=== PATIENT | male | born 1945 | race Caucasian/White ===

== ENCOUNTER 2020-07-26 08:45 | Observation (INO) | payer MEDICARE ==
[2020-07-26 09:12] LABS: Absolute Lymphocytes (CBC) 1.9 K/uL (0.7-4.9); Basophils % 0.8 % (0-1.3); Hematocrit 46.6 % (39.6-49.0); Lymphocytes % 23.2 % (15.3-44.8); MPV 7.4 fL (7.6-11.3); RBC Red Blood Cell Count 4.94 M/uL (4.33-5.43)
[2020-07-26 09:33] LABS: ALT/SGPT 30 U/L (12-78); AST/SGOT 27 U/L (15-37); Albumin 3.6 g/dL (3.4-5.0); Alkaline Phosphatase 53 U/L (45-117); BUN Blood Urea Nitrogen 6 mg/dL (7-18); Bicarbonate 27 mmol/L (21-32); Bilirubin Direct 0.3 mg/dL (0-0.2); Bilirubin Total 0.7 mg/dL (0.2-1.0); Glucose Level 93 mg/dL (74-106); Magnesium 1.8 mg/dL (1.8-2.4); NT PRO-BNP 953 pg/mL (<125); Potassium 3.9 mmol/L (3.5-5.1); Sodium Level 139 mmol/L (136-145); Troponin (Emerg Dept Use Only) < 0.02 ng/mL (0.0-0.045)
--- NOTE | 2020-07-26 09:57 | RAD REPORT ---
EXAM DESCRIPTION: RAD - Chest Single View - 07/26/2020 9:49 am CLINICAL HISTORY: CHEST PAIN COMPARISON: Two view chest March 2019 TECHNIQUE: AP portable chest image was obtained 07/26/2020 9:49 am . FINDINGS: No peripheral mass or consolidation. Interstitial opacification is similar to comparison. Heart size is prominent but similar to comparison. No acute vascular engorgement suspected. No signif icant failure or volume overload seen. Sternotomy wires are in place. No measurable pleural effusion and no pneumothorax. No acute bony abnormality seen. No acute aortic findings suspected. IMPRESSION: No acute cardiopulmonary process. Chest findings are not substantially different from comparison.
--- NOTE | 2020-07-26 10:08 | EDPHYS ---
Physician Documentation [facility] Name: Lobito Holder Age: 75 yrs Sex: Male : 1945 Arrival Date: 07/26/2020 Time: 08:48 Bed 3 Private MD: ED Physician Fredis Hernandez HPI: 07/26 09:55 This 75 yrs old Male presents to ER via Ambulatory with complaints of Chest trace Pain. 09:55 The patient or guardian reports chest pain that is located primarily in the substernal trace area. Onset: 1 day(s) ago. The pain does not radiate. Associated signs and symptoms: Pertinent positives: shortness of breath. The chest pain is described as a heaviness, a pressure. Duration: The patient or guardian reports multiple episodes, that have now resolved. Modifying factors: The symptoms are alleviated by nothing. NTG, X1. remaining still, rest, the symptoms are aggravated by exertion, walking. Severity of pain: At its worst the pain was mild moderate in the emergency department the pain has resolved and did so just prior to arrival, and did so earlier today. The patient has experienced a previous episode, last night. Historical: - Allergies: 09:03 No Known Allergies; ss - PMHx: 09:03 Hypertension; CAD; ss - PSHx: 09:03 CABG; ss - Immunization history:: Adult Immunizations up to date. - Social history:: Smoking status: Patient/guardian denies using tobacco, the patient reports quitting approximately 20 years ago, . - Family history:: not pertinent. ROS: 09:55 Constitutional: Negative for fever, chills, and weight loss, Eyes: Negative for injury, trace pain, redness, and discharge, ENT: Negative for injury, pain, and discharge, Neck: Negative for injury, pain, and swelling, Respiratory: Negative for shortness of breath, cough, wheezing, and pleuritic chest pain, Abdomen/GI: Negative for abdominal pain, nausea, vomiting, diarrhea, and constipation, Back: Negative for injury and pain, : Negative for injury, bleeding, discharge, and swelling, MS/Extremity: Negative for injury and deformity, Skin: Negative for injury, rash, and discoloration, Neuro: Negative for headache, weakness, numbness, tingling, and seizure, Psych: Negative for depression, anxiety, suicide ideation, homicidal ideation, and hallucinations, Allergy/Immunology: Negative for hives, rash, and allergies, Endocrine: Negative for neck swelling, polydipsia, polyuria, polyphagia, and marked weight changes. 09:55 Cardiovascular: Positive for chest pain. 09:55 Cardiovascular: Positive for :55 Respiratory: Positive for shortness of breath, on exertion. :55 Respiratory: Positive for :55 Abdomen/GI: Exam: :55 Constitutional: This is a well developed, well nourished patient who is awake, alert, trace and in no acute distress. Head/Face: Normocephalic, atraumatic. Eyes: Pupils equal round and reactive to light, extra-ocular motions intact. Lids and lashes normal. Conjunctiva and sclera are non-icteric and not injected. Cornea within normal limits. Periorbital areas with no swelling, redness, or edema. ENT: Nares patent. No nasal discharge, no septal abnormalities noted. Tympanic membranes are normal and external auditory canals are clear. Oropharynx with no redness, swelling, or masses, exudates, or evidence of obstruction, uvula midline. Mucous membranes moist. Neck: Trachea midline, no thyromegaly or masses palpated, and no cervical lymphadenopathy. Supple, full range of motion without nuchal rigidity, or vertebral point tenderness. No Meningismus. Chest/axilla: Normal chest wall appearance and motion. Nontender with no deformity. No lesions are appreciated. Cardiovascular: Regular rate and rhythm with a normal S1 and S2. No gallops, murmurs, or rubs. Normal PMI, no JVD. No pulse deficits. Respiratory: Lungs have equal breath sounds bilaterally, clear to auscultation and percussion. No rales, rhonchi or wheezes noted. No increased work of breathing, no retractions or nasal flaring. Abdomen/GI: Soft, non-tender, with normal bowel sounds. No distension or tympany. No guarding or rebound. No evidence of tenderness throughout. Back: No spinal tenderness. No costovertebral tenderness. Full range of motion. Male : Normal genitalia with no discharge or lesions. Skin: Warm, dry with normal turgor. Normal color with no rashes, no lesions, and no evidence of cellulitis. MS/ Extremity: Pulses equal, no cyanosis. Neurovascular intact. Full, normal range of motion. Neuro: Awake and alert, GCS 15, oriented to person, place, time, and situation. Cranial nerves II-XII grossly intact. Motor strength 5/5 in all extremities. Sensory grossly intact. Cerebellar exam normal. Normal gait. Psych: Awake, alert, with orientation to person, place and time. Behavior, mood, and affect are within normal limits. 09:55 Musculoskeletal/extremity: DVT Exam: No signs of deep vein thrombosis. no pain, no swelling, no tenderness, negative Homans' sign noted on exam, no appreciated bluish discoloration, no erythema, no increased warmth. 10:08 ECG was reviewed by the Attending Physician. trace Vital Signs: 08:59 BP 187 / 98; Pulse 86; Resp 18; Temp 97.7(TE); Pulse Ox 98% on R/A; Weight 102.06 kg; ss Height 5 ft. 10 in. (177.80 cm); Pain 0/10; 10:15 BP 169 / 85; Pulse 71 MON; Resp 17; Pulse Ox 97% on R/A; sv 11:39 BP 154 / 79; Pulse 52 MON; Resp 19; Pulse Ox 99% on R/A; vg1 12:30 BP 159 / 82; Pulse 51; Resp 17; Pulse Ox 96% ; sv 13:30 BP 167 / 82; Pulse 55; Resp 19; Pulse Ox 95% ; sv 08:59 Body Mass Index 32.28 (102.06 kg, 177.80 cm) ss 10:15 Normal Sinus Rhythm sv 11:39 Sinus bradycardia vg1 MDM: 08:58 Patient medically screened. trace 10:04 Differential diagnosis: abnormal EKG, coronary artery disease congestive heart failure trace hiatal hernia, pancreatitis, pneumonia, pulmonary embolus, stable angina, unstable angina. HEART Score: History: Moderately Suspicious (1), ECG: Non specific repolarization disturbance / LBTB / PM (1), Age: > or = 65 years (2), Risk Factors: 1 or 2 risk factors (1), Troponin: < or = 1 x Normal Limit (0). The patient was given aspirin in the Emergency Department. The patient's deep vein thrombosis risk score was calculated as follows: Total Score: 0. This patient was found to be at low risk for a deep vein thrombosis by using the Well's assessment criteria. The patient's pulmonary embolism risk score was calculated as follows: Total Score: 0-2 points. This patient was found to be at low risk for a pulmonary embolism by using the Well's assessment criteria. BULMARO Risk Score: 1 - patient's age is greater or equal to 65 years, 1 - Three or more CAD risk factors, 1- Known CAD, 1 - ASA use in past 7 days, 1 - Recent [<24hrs] Severe Angina, TOTAL SCORE = 5. Data reviewed: vital signs, nurses notes, lab test result(s), EKG, radiologic studies, plain films. 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 Test interpretation: by ED physician or midlevel provider: ECG, plain radiologic studies. Counseling: I had a detailed discussion with the patient and/or guardian regarding: the historical points, exam findings, and any diagnostic results supporting the discharge/admit diagnosis, the presence of at least one elevated blood pressure reading (>120/80) during this emergency department visit, lab results, the need for further work-up and treatment in the hospital. 07/26 08:55 Order name: Basic Metabolic Panel sv 07/26 08:55 Order name: CBC with Diff sv 07/26 08:55 Order name: LFT's sv 07/26 08:55 Order name: Magnesium sv 07/26 08:55 Order name: NT PRO-BNP sv 07/26 08:55 Order name: PT-INR sv 07/26 08:55 Order name: Troponin (emerg Dept Use Only) sv 07/26 09:16 Order name: CBC with Automated Diff; Complete Time: 09:20 EDMS 07/26 09:17 Order name: Protime (+INR); Complete Time: 09:20 EDMS 07/26 09:20 Order name: Lipase trace 07/26 09:33 Order name: Basic Metabolic Panel; Complete Time: 09:54 EDMS 07/26 09:33 Order name: Liver (Hepatic) Function; Complete Time: 09:54 EDMS 07/26 09:33 Order name: Troponin (Emerg Dept Use Only); Complete Time: 09:54 EDMS 07/26 09:33 Order name: NT PRO-BNP; Complete Time: 09:54 EDMS 07/26 08:55 Order name: XRAY Chest (1 view) sv 07/26 08:55 Order name: EKG; Complete Time: 08:56 sv 07/26 08:55 Order name: Cardiac monitoring; Complete Time: 09:05 sv 07/26 08:55 Order name: EKG - Nurse/Tech; Complete Time: 09:05 sv 07/26 08:55 Order name: IV Saline Lock; Complete Time: 09:05 sv 07/26 08:55 Order name: Labs collected and sent; Complete Time: 09:05 sv 07/26 08:55 Order name: O2 Per Protocol; Complete Time: 09:06 sv 07/26 08:55 Order name: O2 Sat Monitoring; Complete Time: 09:06 sv 07/26 09:33 Order name: Magnesium; Complete Time: 09:54 EDMS 07/26 09:48 Order name: Lipase; Complete Time: 09:54 EDMS 07/26 09:58 Order name: RAD; Complete Time: 10:09 EDMS EC:08 Rate is 87 beats/min. Rhythm is regular. QRS [place]ship is Normal. SC interval is normal. QRS trace interval is normal. QT interval is normal. No Q waves. T waves are Normal. Clinical impression: NSR w/ Non-specific ST/T Changes and No evidence of ischemia. Interpreted by me. Reviewed by me. Administered Medications: 10:34 Drug: Pepcid 20 mg Route: IVP; Site: right antecubital; sv 11:00 Follow up: Response: No adverse reaction sv 10:34 Drug: Lovenox 100 mg Route: Sub-Q; Site: right lower abdomen; sv 11:00 Follow up: Response: No adverse reaction sv 10:35 Drug: Lopressor 2.5 mg Route: IVP; Site: right antecubital; sv 11:39 Follow up: BP 154 / 79; Pulse 52 bpm Monitor: Sinus bradycardia; Resp 19 bpm; Pulse Ox vg1 99% RA; Response: No adverse reaction 10:35 Drug: Lopressor (metoprolol TARTRATE) 50 mg Route: PO; sv 11:00 Follow up: Response: No adverse reaction sv 13:45 Not Given (Physician Discretion): Lopressor 2.5 mg IVP once; Hold for SBP <100 or HR sv <60. Disposition: 07/26/20 10:07 Hospitalization ordered by Phi Rivera for Observation. Preliminary diagnosis are Chest pain, unspecified, Unstable angina, Essential (primary) hypertension. - Bed requested for Telemetry/MedSurg (observation). - Status is Observation. sv - Condition is Stable. - Problem is new. - Symptoms have improved. Signatures: Dispatcher [employer] Nishi Loza, RN RN Danna Mancini RN RN Fredis Guzmán MD MD cha Smirch, Shelby, RN RN ss Garcia, Victoria RN vg1 Corrections: (The following items were deleted from the chart) 13:16 10:07 Hospitalization Ordered by Phi Rivera for Observation. Preliminary diagnosis dw is Chest pain, unspecified; Unstable angina; Essential (primary) hypertension. Bed requested for Telemetry/MedSurg (observation). Status is Observation. Condition is Stable. Problem is new. Symptoms have improved. trace 13:55 13:16 07/26/2020 10:07 Hospitalization Ordered by Phi Rivera for Observation. sv Preliminary diagnosis is Chest pain, unspecified; Unstable angina; Essential (primary) hypertension. Bed requested for Telemetry/MedSurg (observation). Status is Observation. Condition is Stable. Problem is new. Symptoms have improved. dw
--- NOTE | 2020-07-26 10:08 | ER ---
Nurse's Notes [facility] Name: Lobito Holder Age: 75 yrs Sex: Male : 1945 Arrival Date: 07/26/2020 Time: 08:48 Bed 3 Private MD: Diagnosis: Chest pain, unspecified;Unstable angina;Essential (primary) hypertension Presentation: 07/26 08:59 Chief complaint: Patient states: Chest pain that began last night. Is relieved with ss Nitro. Pt reports he has been out of his amlodipine for 2 weeks. Coronavirus screen: Client denies travel out of the [place] in the last 14 days. Ebola Screen: Patient denies exposure to infectious person. Patient denies travel to an Ebola-affected area in the 21 days before illness onset. Initial Sepsis Screen: Does the patient meet any 2 criteria? No. Patient's initial sepsis screen is negative. Does the patient have a suspected source of infection? No. Patient's initial sepsis screen is negative. Risk Assessment: Do you want to hurt yourself or someone else? Patient reports no desire to harm self or others. Onset of symptoms was July 25, 2020. 08:59 Method Of Arrival: Ambulatory ss 08:59 Acuity: JAGJIT 2 ss Historical: - Allergies: 09:03 No Known Allergies; ss - PMHx: 09:03 Hypertension; CAD; ss - PSHx: 09:03 CABG; ss - Immunization history:: Adult Immunizations up to date. - Social history:: Smoking status: Patient/guardian denies using tobacco, the patient reports quitting approximately 20 years ago, . - Family history:: not pertinent. Screenin:00 Abuse screen: Denies threats or abuse. Denies injuries from another. Nutritional sv screening: No deficits noted. Tuberculosis screening: No symptoms or risk factors identified. Fall Risk None identified. Assessment: 09:00 General: Appears in no apparent distress. comfortable, unkempt, well developed, sv Behavior is calm, cooperative, appropriate for age. Pain: Complains of pain in chest Pain does not radiate. Pain currently is 3 out of 10 on a pain scale. Quality of pain is described as tightness Pain began 1 day ago. Is intermittent. Neuro: Level of Consciousness is awake, alert, obeys commands, Oriented to person, place, time, situation, Moves all extremities. Full function Gait is steady, Speech is normal. Cardiovascular: Patient's skin is warm and dry. Pulses are palpable in right radial artery and left radial artery Rhythm is sinus rhythm. Respiratory: Airway is patent Respiratory effort is even, unlabored, Respiratory pattern is regular, symmetrical. Respiratory: Reports shortness of breath. Derm: Skin is intact, Skin is pink, warm \T\ dry. 10:15 Reassessment: Patient appears in no apparent distress at this time. No changes from sv previously documented assessment. Patient and/or family updated on plan of care and expected duration. Pain level reassessed. Patient is alert, oriented x 3, equal unlabored respirations, skin warm/dry/pink. 11:39 Reassessment: Dr Rivera at the pt bedside. vg1 11:51 Reassessment: Waiting for admission orders. vg1 11:54 Reassessment: Patient appears in no apparent distress at this time. No changes from sv previously documented assessment. Patient and/or family updated on plan of care and expected duration. Pain level reassessed. Patient is alert, oriented x 3, equal unlabored respirations, skin warm/dry/pink. 12:27 Reassessment: Called Dr Rivera to place admission orders, stated he would put them in. sv Vital Signs: 08:59 BP 187 / 98; Pulse 86; Resp 18; Temp 97.7(TE); Pulse Ox 98% on R/A; Weight 102.06 kg; ss Height 5 ft. 10 in. (177.80 cm); Pain 0/10; 10:15 BP 169 / 85; Pulse 71 MON; Resp 17; Pulse Ox 97% on R/A; sv 11:39 BP 154 / 79; Pulse 52 MON; Resp 19; Pulse Ox 99% on R/A; vg1 12:30 BP 159 / 82; Pulse 51; Resp 17; Pulse Ox 96% ; sv 13:30 BP 167 / 82; Pulse 55; Resp 19; Pulse Ox 95% ; sv 08:59 Body Mass Index 32.28 (102.06 kg, 177.80 cm) ss 10:15 Normal Sinus Rhythm sv 11:39 Sinus bradycardia vg1 ED Course: 08:48 Patient arrived in ED. as 08:54 Nishi Smith RN is Primary Nurse. sv 08:58 Fredis Hernandez MD is Attending Physician. trace 09:00 Patient has correct armband on for positive identification. Placed in gown. Bed in low sv position. Call light in reach. Side rails up X2. Adult w/ patient. security monitor on. Pulse ox on. NIBP on. 09:00 Inserted saline lock: 20 gauge in right antecubital area, using aseptic technique. sv Blood collected. Flushed right antecubital with 2 ml normal saline. Patient maintains SpO2 saturation greater than 95% on room air. 09:02 Triage completed. ss 09:03 Arm band placed on right wrist. ss 09:05 EKG done, by ED staff, reviewed by Fredis Hernandez MD. sv 09:18 X-ray(s) taken. vg1 09:24 Lipase Sent. sv 09:35 XRAY Chest (1 view) Sent. sv 09:35 Troponin (emerg Dept Use Only) Sent. sv 09:35 PT-INR Sent. sv 09:35 NT PRO-BNP Sent. sv 09:35 Magnesium Sent. sv 09:35 LFT's Sent. sv 09:35 CBC with Diff Sent. sv 09:35 Basic Metabolic Panel Sent. sv 09:49 ED physician to see patient. sv 10:07 Phi Rivera is Hospitalizing Provider. trace 13:43 No provider procedures requiring assistance completed. Patient admitted, IV remains in sv place. intact. Administered Medications: 10:34 Drug: Pepcid 20 mg Route: IVP; Site: right antecubital; sv 11:00 Follow up: Response: No adverse reaction sv 10:34 Drug: Lovenox 100 mg Route: Sub-Q; Site: right lower abdomen; sv 11:00 Follow up: Response: No adverse reaction sv 10:35 Drug: Lopressor 2.5 mg Route: IVP; Site: right antecubital; sv 11:39 Follow up: BP 154 / 79; Pulse 52 bpm Monitor: Sinus bradycardia; Resp 19 bpm; Pulse Ox vg1 99% RA; Response: No adverse reaction 10:35 Drug: Lopressor (metoprolol TARTRATE) 50 mg Route: PO; sv 11:00 Follow up: Response: No adverse reaction sv 13:45 Not Given (Physician Discretion): Lopressor 2.5 mg IVP once; Hold for SBP <100 or HR sv <60. Outcome: 10:07 Decision to Hospitalize by Provider. trace 13:43 Admitted to Tele accompanied by tech, via wheelchair, room 404, with chart, Report sv called to Marv CHICAS 13:43 Condition: stable 13:43 Instructed on the need for admit. 13:55 Patient left the ED. sv Signatures: Nishi Smith RN Fredis Rees MD MD cha Martinez, Amelia as Smirch, Shelby, RN RN Mali Moses RN RN vg1 Corrections: (The following items were deleted from the chart) 11:39 11:30 BP 154 / 79; Pulse 52 bpm Monitor: Sinus bradycardia; Resp 19 bpm; Pulse Ox 99% vg1 RA vg1
[2020-07-26] MEDS ORDERED: METOPROLOL TAR 50 MG TAB ONE (10:27)
[2020-07-26] MEDS ORDERED: FAMOTIDINE 20 MG/2 ML VIAL IV ONE (10:28)
[2020-07-26] MEDS ORDERED: METOPROLOL TARTRATE 5 MG/5 ML INJ IV ONE (10:28)
[2020-07-26] MEDS ORDERED: ENOXAPARIN 100 MG/ML SYR SQ ONE (10:28)
--- NOTE | 2020-07-26 13:03 | P.HP ---
Certification for Inpatient Patient admitted to: Observation With expected LOS: <2 Midnights Practitioner: I am a practitioner with admitting privileges, knowledge of patient current condition, hospital course, and medical plan of care. Services: Services provided to patient in accordance with Admission requirements found in Title 42 Section 412.3 of the Code of Federal Regulations Patient History Date of Service: 07/26/20 Reason for admission: Chest pain History of Present Illness: 75-year-old gentleman with a history of coronary artery disease, CABG and cardiac stents presented to the emergency department with a complaint of chest pain of onset yesterday. Patient reports intermittent chest pain, worse with exertion likely climbing stairs, relieved with nitroglycerine. The patient denies any shortness of breath or sweating or nausea. His chest x-ray in the ED is unremarkable. EKG showed nonspecific ST T wave change. Initial troponin is negative. Given patient's significant cardiac risk factors, he is placed under observation for ACS rule out. Allergies No Known Allergies Allergy (Verified 08/29/16 09:54) - Past Medical/Surgical History -: Coronary artery disease -: Hypertension -: Diabetes mellitus type 2 -: Hyperlipidemia -: CABG -: Cardiac stent - Family History Brother -: Diabetes - Social History Smoking Status: Former smoker Alcohol use: No CD- Drugs: No Review of Systems Other: Except as documented, all other systems reviewed and negative. Physical Examination - Physical Exam General: Alert, In no apparent distress HEENT: PERRLA, Mucous membr. moist/pink, Sclerae nonicteric Neck: Supple, JVD not distended Respiratory: Clear to auscultation bilaterally, Normal air movement Cardiovascular: No edema, Regular rate/rhythm, Normal S1 S2 Capillary refill: <2 Seconds Gastrointestinal: Normal bowel sounds, Soft and benign, Non-distended, No tenderness Musculoskeletal: No swelling, No erythema Integumentary: No rashes, No erythema Neurological: Normal speech, Normal strength at 5/5 x4 extr - Studies Laboratory Data (last 24 hrs) 07/26/20 09:00: Lipase 127 07/26/20 09:00: PT 11.8, INR 1.00 07/26/20 09:00: WBC 8.1, Hgb 16.0, Hct 46.6, Plt Count 330 07/26/20 09:00: Sodium 139, Potassium 3.9, BUN 6 L, Creatinine 0.83, Glucose 93, Magnesium 1.8, Total Bilirubin 0.7, AST 27, ALT 30, Alkaline Phosphatase 53 Assessment and Plan - Problems (Diagnosis) (1) Chest pain Current Visit: Yes Status: Acute (2) Coronary artery disease Current Visit: Yes Status: Acute (3) Diabetes mellitus type 2 in nonobese Current Visit: Yes Status: Acute - Plan Place under observation. Continue to trend troponin Treat him with aspirin, Lipitor, metoprolol. Resume home dose amlodipine to control blood pressure. Obtain echocardiogram Check lipid profile Cardiology consult. - Advance Directives Does patient have a Living Will: No Does patient have a Durable POA for Healthcare: No
[2020-07-26] MEDS ORDERED: NITROGLYCERIN 0.4 MG/TAB SL PRN (14:10)
[2020-07-26 14:14] VITALS: BMI 32.3
[2020-07-26] MEDS ORDERED: MORPHINE 2 MG/ML SYR IV PRN (14:28)
[2020-07-26 14:29] VITALS: O2SAT 95
[2020-07-26] MEDS ORDERED: D50W 25 GM/50 ML SYRINGE/VIAL IV PRN (15:00)
[2020-07-26] MEDS ORDERED: ENOXAPARIN 40 MG/0.4 ML SQ SCH (15:00)
[2020-07-26] MEDS ORDERED: GLUCAGON 1 MG/VIAL IM PRN (15:00)
[2020-07-26 15:07] LABS: HDL Cholesterol 77 mg/dL (40-60); LDL Cholesterol, Calculated 31 (<130); Troponin I < 0.02 ng/mL (0.0-0.045)
[2020-07-26] MEDS: INSULIN -REGULAR HUMAN 50 UNIT/0.5 ML ML SQ SCH ×2 (16:29→20:10)
[2020-07-26] MEDS ORDERED: MELATONIN 5 MG TABLET PO PRN (23:56)
[2020-07-27 06:03] LABS: Absolute Lymphocytes (CBC) 1.9 K/uL (0.7-4.9); BUN Blood Urea Nitrogen 8 mg/dL (7-18); Basophils % 1.7 % (0-1.3); Bicarbonate 27 mmol/L (21-32); Glucose Level 93 mg/dL (74-106); Hematocrit 43.2 % (39.6-49.0); Lymphocytes % 24.2 % (15.3-44.8); MPV 8.1 fL (7.6-11.3); Potassium 3.7 mmol/L (3.5-5.1); RBC Red Blood Cell Count 4.55 M/uL (4.33-5.43); Sodium Level 142 mmol/L (136-145)
[2020-07-27] MEDS: INSULIN -REGULAR HUMAN 50 UNIT/0.5 ML ML SQ SCH ×2 (07:30→11:30)
[2020-07-27] MEDS ORDERED: METFORMIN ER 500 MG TAB PO SCH (08:00)
[2020-07-27] MEDS ORDERED: ENOXAPARIN 40 MG/0.4 ML SQ SCH (09:00)
[2020-07-27] MEDS ORDERED: ASPIRIN EC 81 MG TAB PO SCH (09:00)
[2020-07-27] MEDS ORDERED: ROSUVASTATIN 10 MG TAB PO SCH (09:00)
--- NOTE | 2020-07-27 10:47 | EKG ---
Test Date: 2020-07-26 Test Time: 09:05:17 [employer]: YONI MEASUREMENT RESULTS: Intervals: Rate: 87 NC: 124 QRSD: 94 QT: 374 QTc: 450 [place]: P: 28 NC: 124 QRS: 17 T: -3 INTERPRETIVE STATEMENTS: Sinus rhythm with sinus arrhythmia with occasional premature ventricular complexes Nonspecific ST abnormality Abnormal ECG Compared to ECG 07/04/2004 05:57:00 Ventricular premature complex(es) now present ST (T wave) deviation now present Myocardial infarct finding no longer present Electronically Signed On 07-27-20 10:45:09 CDT by William Lomas
--- NOTE | 2020-07-27 11:14 | P.DS ---
Admission Date: 07/26/20 Discharge Date: 07/27/20 Disposition: ROUTINE DISCHARGE Discharge Condition: GOOD Reason for Admission: Chest pain Consultations: Cardiology - Dr. Lomas Procedures: CXR 07/26: IMPRESSION: No acute cardiopulmonary process. Chest findings are not substantially different from comparison. TTE 07/27: VERY TECHNICALLY DIFFICULT STUDY. NORMAL LEFT VENTRICULAR EJECTION AND LEFT VENTRICULAR SIZE. NO WALL MOTION ABNORMALITY. NO EFFUSION. Problem List Chest pain CAD S/p CABG DM2 HTN HLD Brief History of Present Illness: 75-year-old gentleman with a history of coronary artery disease, CABG and cardiac stents presented to the emergency department with a complaint of chest pain of onset yesterday. Patient reports intermittent chest pain, worse with exertion likely climbing stairs, relieved with nitroglycerine. The patient denies any shortness of breath or sweating or nausea. His chest x-ray in the ED is unremarkable. EKG showed nonspecific ST T wave change. Initial troponin is negative. Given patient's significant cardiac risk factors, he is placed under observation for ACS rule out. Hospital Course: Patient reported resolution of chest pain prior to admission, troponins remained negative, echocardiogram was reported as unremarkable. Cardiology was consulted and felt patient was stable to be discharged home with follow-up with cardiology in ~1 month. During the hospitalization it was noted that patient had run out of his BP medications a few weeks prior to admission and was hypertensive on admission. He was treated with norvasc 5mg as opposed to the reported 10mg home dose. On day of discharge his BP was 109-120s/70s, so he was given a prescription for 5mg norvasc instead of 10mg. He is to f/u with his PCP within 1 week. Vital Signs/Physical Exam: Temp Pulse Resp BP Pulse Ox 98.6 F 61 16 109/72 94 07/27/20 08:00 07/27/20 08:09 07/27/20 08:00 07/27/20 08:09 07/27/20 08:00 General: Alert, In no apparent distress Neck: No LAD Respiratory: Clear to auscultation bilaterally Cardiovascular: No edema, Regular rate/rhythm, Normal S1 S2 Gastrointestinal: Soft and benign, Non-distended, No tenderness Musculoskeletal: No erythema, No tenderness Integumentary: No rashes Neurological: Normal speech, Normal affect Laboratory Data at Discharge: WBC 7.7 K/uL (4.3-10.9) 07/27/20 03:22 Hgb 14.6 g/dL (13.6-17.9) 07/27/20 03:22 Hct 43.2 % (39.6-49.0) 07/27/20 03:22 Plt Count 304 K/uL (152-406) 07/27/20 03:22 PT 11.8 SECONDS (9.5-12.5) 07/26/20 09:00 INR 1.00 07/26/20 09:00 Sodium 142 mmol/L (136-145) 07/27/20 03:22 Potassium 3.7 mmol/L (3.5-5.1) 07/27/20 03:22 BUN 8 mg/dL (7-18) 07/27/20 03:22 Creatinine 0.78 mg/dL (0.55-1.3) 07/27/20 03:22 Glucose 93 mg/dL (74-106) 07/27/20 03:22 Magnesium 1.8 mg/dL (1.8-2.4) 07/26/20 09:00 Total Bilirubin 0.7 mg/dL (0.2-1.0) 07/26/20 09:00 AST 27 U/L (15-37) 07/26/20 09:00 ALT 30 U/L (12-78) 07/26/20 09:00 Alkaline Phosphatase 53 U/L (45-117) 07/26/20 09:00 Troponin I 0.09 ng/mL (0.0-0.045) H 07/27/20 07:10 Triglycerides 90 mg/dL (<150) 07/26/20 14:33 Cholesterol 126 mg/dL (<200) 07/26/20 14:33 HDL Cholesterol 77 mg/dL (40-60) H 07/26/20 14:33 Cholesterol/HDL Ratio 1.64 07/26/20 14:33 Lipase 127 U/L (73-393) 07/26/20 09:00 Home Medications: Metformin ER [Glucophage ER*] 1 tab PO DAILY 07/26/20 Rosuvastatin [Crestor*] 2 tab PO BEDTIME 07/26/20 Amlodipine [Norvasc*] 1 tab PO DAILY 30 Days #30 tab 07/27/20 Lisinopril/Hydrochlorothiazide [Lisinopril-Hctz 20-12.5 mg Tab] 1 tab PO DAILY 30 Days #30 07/27/20 Nitroglycerin [Nitrostat*] 1 tab SL UD PRN #20 tab 07/27/20 New Medications: Lisinopril/Hydrochlorothiazide [Lisinopril-Hctz 20-12.5 mg Tab] 1 tab PO DAILY 30 Days #30 Nitroglycerin [Nitrostat*] 1 tab SL UD PRN #20 tab PRN Reason: Pain Scale 2-4 (Mild) Amlodipine [Norvasc*] 1 tab PO DAILY 30 Days #30 tab Patient Discharge Instructions: follow up with PCP within 1 week. follow up with Cardiology - Dr. Lomas in ~1 month Diet: AHA Activity: Ad vicente Followup: William Lomas MD [ACTIVE - CAN ADMIT] - (Call for appointment in one month. ) Omer Decker MD [Primary Care Provider] - 1 Week (Call for appointment. ) Time spent managing pt's care (in minutes): 35
[2020-07-27 12:03] VITALS: BP 120/70; TEMP 98
--- NOTE | 2020-07-27 12:06 | ECHO ---
HEIGHT: 5 ft 10 in WEIGHT: 225 lb 0 oz DATE OF STUDY: 07/27/[address]: beatrice gordon 2-DIMENSIONAL: YES M.MODE: YES DOPPLER: YES COLOR FLOW: YES TDS: YES PORTABLE: NO DEFINITY: NO BUBBLE STUDY: NO DIAGNOSIS: CORONARY ARTERY DISEASE WITH ANGINA CARDIAC HISTORY: CATHERIZATION: YES SURGERY: YES PROSTHETIC VALVE: NO PACEMAKER: NO MEASUREMENTS (cm) DIASTOLIC (NORMALS) SYSTOLIC (NORMALS) IVSd 1.0 (0.6-1.2) LA Diam 4.2 (1.9-4.0) LVEF 63% LVIDd 4.4 (3.5-5.7) LVIDs 2.9 (2.0-3.5) %FS 34% LVPWd 1.0 (0.6-1.2) Ao Diam 2.4 (2.0-3.7) 2 DIMENSIONAL ASSESSMENT: RIGHT ATRIUM: NORMAL LEFT ATRIUM: DILATED RIGHT VENTRICLE: NORMAL LEFT VENTRICLE: NORMAL TRICUSPID VALVE: NORMAL MITRAL VALVE: NORMAL PULMONIC VALVE: NORMAL AORTIC VALVE: NORMAL PERICARDIAL EFFUSION: NONE AORTIC ROOT: NORMAL LEFT VENTRICULAR WALL MOTION: NORMAL DOPPLER/COLOR FLOW: NORMAL COMMENTS: VERY TECHNICALLY DIFFICULT STUDY. NORMAL LEFT VENTRICULAR EJECTION AND LEFT VENTRICULAR SIZE. NO WALL MOTION ABNORMALITY. NO EFFUSION. TECHNOLOGIST: Dulce HENRY
[2020-07-27] MEDS ORDERED: AMLODIPINE 5 MG TAB PO SCH (15:00)
--- NOTE | 2020-07-28 05:36 | CON ---
Date of Consultation: 07/27/2020 Reason For Consultation: Chest pain. History Of Present Illness: The patient is a 75-year-old male, has had a history of hypertension, di abetes, dyslipidemia, coronary artery disease, status post coronary artery bypass surgery. Has been very noncompliant with medication. Has been drinking more alcohol than usual. Has run out of Apozy. Came in with a blood pressure 180/93. So far, he has had a negative chest x-ray, negative tropo tab. He had symptoms with exertion when he was going up the stairs while he was watching a football game. His pain lasted about 15-20 minutes without any nausea, vomiting, diaphoresis, PND, orthopnea, pedal edema, palpitations, or syncope. Past Medical History: As stated above. Allergies: NONE. Medications: Medications at home are supposed to be lisinopril with hydrochlorothiazide, Norvasc, Cr estor, and metformin. Review of Systems: Negative. Social History: Positive for alcohol and tobacco use. Family History: Positive for heart disease. Physical Examination: Vital Signs: His blood pressure was 180/93. He was in sinus rhythm, afebrile. HEENT: Negative. Neck: Supple with no bruit, lymphadenopathy, JVD, or thyromegaly. Chest: Clear to auscultation and percussion. Cardiac Exam: Revealed a regular rhythm and rate. No murmurs or rubs. He had S4 gallops. Abdomen: Benign. Extremities: Revealed no clubbing, cyanosis, or edema. Skin: Dry and intact. Pulses were present distally bilaterally. Neurologic: He was nonfocal. Diagnostic Data: Fairly unremarkable. Impression And Plan: Stable angina in a patient with coronary artery disease, not in acute coronary syndrome. The patient needs to be seen soon in the office. I think he needs an outpatient stress te st. We need to improve his compliance. He was counseled against smoking and drinking. Prescription s for lisinopril hydrochlorothiazide, Norvasc, Crestor, and metformin were written for him. It may b e reasonable to add a low-dose beta-belia as well. If his symptoms persist, he will need a cathete rization as an outpatient, but we will follow him in the next week or two. His other issues includin g diabetes and dyslipidemia seem to be well controlled at this point. NB/MODL Voice ID: [id number] Report ID: [id number]
== END 2020-07-27 12:10 | disposition home or self-care (01) ==
LOC: ER 08:45 → ERHOLD 12:52 → 4TH 13:46
PROVIDERS: ADMIT Internal Medicine; ATTEND Hospitalist
DX: R07.9 Chest pain, unspecified (principal); I25.10 Atherosclerotic heart disease of native coronary artery without angina pectoris; Z95.1 Presence of aortocoronary bypass graft; E11.9 Type 2 diabetes mellitus without complications; I10 Essential (primary) hypertension; E78.5 Hyperlipidemia, unspecified; Z95.5 Presence of coronary angioplasty implant and graft; Z91.14 Patient's other noncompliance with medication regimen; Z79.84 Long term (current) use of oral hypoglycemic drugs; R94.31 Abnormal electrocardiogram [ECG] [EKG]; Z20.828 Contact with and (suspected) exposure to other viral communicable diseases; Z87.891 Personal history of nicotine dependence
CPT/HCPCS: 93005; 93306; 85025 ×2; 80048 ×2; 36415 ×2; 83735; 85610; 80061; 82947 ×3; 80076; 84484 ×5; 83690; 83880; 71045; 96375; 96372; 96374; 99285; U0002; J1650 ×2; G0378 ×3

== ENCOUNTER 2021-10-31 12:28 | Inpatient (IN) | payer OTHER ==
--- OUTSIDE RECORDS SUMMARY | 2021-10-31 12:31 | XMS REPORT | Continuity of Care Document ---
:1945 Author Organization [facility] t Address [address] [place] [address] Care Team Providers Name Role Phone JOVON Attending Clinician Unavailable JOSHUA Attending Clinician Unavailable Flip LUNSFORD Attending Clinician Unavailable Kirby VELÁZQUEZ Attending Clinician Unavailable LAB90 Attending Clinician Unavailable Payers Payer Name Policy Type Policy Number Effective Date Expiration Date Vandana lakhani [employer] - HMO 7 [id number] 2021 00:00:00 2020 R2T Problems This patient has no known problems. Allergies, Adverse Reactions, Alerts This patient has no known allergies or adverse reactions. Medications This patient has no known medications. Procedures This patient has no known procedures. Encounters Start End Encounter Admission Attending Care Care Encounter Source Date/Time Date/Time Type Type Clinicians Facility Department ID 2021-08-02 2021-08-02 Outpatient ANGELICA SIGALA [id number] [facility] 00:00:00 00:00:00 MICHAEL jensen 2021-05-20 2021-05-20 Outpatient ANGELICA LEWIS [id number] [place] 09:30:00 09:30:00 SHALA ryan 2021-05-20 2021-05-20 Outpatient ELIAS LUNSFORD [id number] [place] 00:00:00 00:00:00 Serubén bose 2021-05-20 2021-05-20 Outpatient ANGELICA SIGALA [id number] [place] 00:00:00 00:00:00 MICHAEL jensen 2021-03-15 2021-03-15 Outpatient ANGELICA VELÁZQUEZ [id number] [place] 13:00:00 13:00:00 LAMAR ryan 2021-03-08 2021-03-08 Outpatient LAB90 ANGELICA DOMINGUEZ [id number] [place] 09:40:00 09:40:00 Seybol d 2021-03-01 2021-03-01 Outpatient ANGELICA VELÁZQUEZ [id number] [place] 13:00:00 13:00:00 LAMAR ryan 2021-02-28 2021-02-28 Outpatient LAB90 ANGELICA DOMINGUEZ [id number] [place] 10:55:00 10:55:00 Seybol d Results This patient has no known results.
[2021-10-31 13:48] LABS: Absolute Lymphocytes (CBC) 1.5 K/uL (0.7-4.9); Hematocrit 49.1 % (39.6-49.0); MPV 7.7 fL (7.6-11.3); RBC Red Blood Cell Count 5.46 M/uL (4.33-5.43)
[2021-10-31 13:54] LABS: Protime INR 1.03
[2021-10-31] MEDS ORDERED: NA CHLORIDE 0.9% 1,000 ML ONE ×3 (14:11→17:34)
[2021-10-31 14:23] LABS: Albumin 3.6 g/dL (3.4-5.0); Bilirubin Direct 0.3 mg/dL (0-0.2); Magnesium 2.5 mg/dL (1.8-2.4); Potassium 3.8 mmol/L (3.5-5.1); Protein, Total 8.9 g/dL (6.4-8.2); Troponin (Emerg Dept Use Only) 1.03 ng/mL (0.0-0.045)
[2021-10-31 14:39] LABS: SARS-COV-2 RT PCR NEGATIVE (NEGATIVE)
--- NOTE | 2021-10-31 14:50 | RAD REPORT ---
EXAM DESCRIPTION: RAD - Chest Single View - 10/31/2021 2:45 pm CLINICAL HISTORY: generalized weakness Chest pain. COMPARISON: Chest Single View dated 07/26/2020; Chest Pa And Lat (2 Views) dated 04/11/2019; CHEST PA AND LAT 2 VIEW dated 03/19/2015 FINDINGS: Portable technique limits examination quality. Mild pulmonary edema is present. The heart is moderately enlarged. Sternotomy wires present.Small hia mey hernia. IMPRESSION: Mild CHF.
--- NOTE | 2021-10-31 14:56 | RAD REPORT ---
EXAM DESCRIPTION: CT - CTHCSPWOC - 10/31/2021 2:43 pm CLINICAL HISTORY: Trauma, head and neck injury. Fall injury COMPARISON: No comparisons TECHNIQUE: Axial 5 mm thick images of the head were obtained. Axial 2 mm thick images of the cervical spine were obtained with sagittal and coronal reconstruction images generated and reviewed. All CT scans are performed using dose optimization technique as appropriate and may include automated exposure control or mA/KV adjustment according to patient size. FINDINGS: CT HEAD WITHOUT CONTRAST: No acute hemorrhage, hydrocephalus or extra-axial collection is identified.No areas of brain edema or midline shift. Moderate generalized brain atrophy is present with moderate periventricular and deep white matter chronic microvascular ischemic changes. Small amount of fluid is seen left maxillary antrum. The paranasal sinuses and mastoids are otherwise clear.Vertebral atherosclerosis.The calvarium is intact. CT CERVICAL SPINE WITHOUT CONTRAST: No fracture or subluxation.Moderate multilevel degenerative spondylosis of the cervical spine present .No prevertebral soft tissues swelling is identified. IMPRESSION: No acute intracranial or cervical spine findings. Moderate multilevel cervical degenerative changes
[2021-10-31] MEDS ORDERED: ASPIRIN 81 MG CHEWABLE TABLET ONE ×2 (15:14→17:34)
--- NOTE | 2021-10-31 15:19 | ER ---
Nurse's Notes [facility] Name: Lobito Holder Age: 76 yrs Sex: Male : 1945 Arrival Date: 10/31/2021 Time: 12:44 Bed 20 Private MD: Diagnosis: Rhabdomyolysis Presentation: 10/31 12:45 Chief complaint: EMS states: got called bc he fell at home, was lying on ground, not iw complaining of pain but states he is thirsty, house was filthy , pt lives alone , fell this morning. Coronavirus screen: At this time, the client does not indicate any symptoms associated with coronavirus-19. Ebola Screen: Patient negative for fever greater than or equal to 101.5 degrees Fahrenheit, and additional compatible Ebola Virus Disease symptoms Patient denies exposure to infectious person. Patient denies travel to an Ebola-affected area in the 21 days before illness onset. No symptoms or risks identified at this time. Onset of symptoms was October 31, 2021. 12:45 Method Of Arrival: EMS: [facility] iw 12:45 Acuity: JAGJIT 3 iw 12:45 Initial Sepsis Screen: Does the patient meet any 2 criteria? No. Patient's initial iw sepsis screen is negative. Does the patient have a suspected source of infection? No. Patient's initial sepsis screen is negative. Risk Assessment: Do you want to hurt yourself or someone else? Patient reports no desire to harm self or others. 14:24 Acuity: JAGJIT 2 iw Triage Assessment: 13:00 General: Appears in no apparent distress. uncomfortable, unkempt, Behavior is bp cooperative, agitated, anxious. Pain: Denies pain. EENT: No deficits noted. Neuro: No deficits noted. Cardiovascular: No deficits noted. Respiratory: No deficits noted. GI: No signs and/or symptoms were reported involving the gastrointestinal system. : No signs and/or symptoms were reported regarding the genitourinary system. Derm: No deficits noted. Musculoskeletal: No deficits noted. Historical: - Allergies: 13:28 No Known Allergies; iw - PMHx: 13:28 Hypertension; CAD; iw Screenin:09 Abuse screen: Denies threats or abuse. Denies injuries from another. Nutritional iw screening:. Tuberculosis screening: No symptoms or risk factors identified. Fall Risk Fall in past 12 months (25 points). Assessment: 13:00 General: SEE TRIAGE NOTE. bp 15:00 Reassessment: No changes from previously documented assessment. Patient and/or family bp updated on plan of care and expected duration. Pain level reassessed. PT MOVED TO ED20. 20:59 Reassessment: Report called to Maeve schmidt. . ww Vital Signs: 12:45 BP 112 / 82; Pulse 117; Resp 18 S; Temp 97.3(TE); Pulse Ox 100% on R/A; Weight 49.9 kg; bp 15:00 BP 91 / 63; Pulse 113; Resp 17; Pulse Ox 100% ; bp 16:00 BP 97 / 74; Pulse 110; Resp 24; Pulse Ox 98% ; bp 20:43 BP 89 / 70; Pulse 109; Resp 25; Temp 97.9; Pulse Ox 96% 00 lpm ; Pain 0/10; ww ED Course: 12:44 Patient arrived in ED. iw 12:46 Triage completed. iw 12:58 Hugo Kathleen NP is PHCP. pm1 12:58 Fredis Hernandez MD is Attending Physician. pm1 13:00 Arm band placed on. bp 13:00 Patient has correct armband on for positive identification. Bed in low position. Call bp light in reach. Side rails up X2. 13:46 Initial lab(s) drawn, by me, sent to lab. Inserted saline lock: 22 gauge in right hand, gd using aseptic technique. 14:24 Omer Valdez, RN is Primary Nurse. bp 14:43 CT Head C Spine In Process Unspecified. EDMS 14:44 XRAY Chest (1 view) In Process Unspecified. EDMS 14:52 EKG done, by ED staff, reviewed by Hugo Kathleen MEDICAL OFFICE ASSISTANT INSTRUCTOR. mb7 15:18 Kvng Garcia DO is Hospitalizing Provider. pm1 19:15 Primary Nurse role handed off by Omer Valdez, JUAN FRANCISCO mw2 20:09 Nevin Khalil, JUAN FRANCISCO is Primary Nurse. ww 21:31 No provider procedures requiring assistance completed. IV is patent. ww Administered Medications: 14:11 Drug: NS 0.9% 1000 ml Route: IV; Rate: 1000 ml; Site: right hand; iw 16:24 Follow up: IV Status: Completed infusion; IV Intake: 100ml bp 15:30 Drug: Lovenox (enoxaparin) 1 mg/kg Route: Sub-Q; Site: left upper abdomen; bp 15:30 Drug: NS 0.9% 1000 ml Route: IV; Rate: 100 ml/hr; Site: left hand; bp 16:03 Drug: NS 0.9% 500 ml Route: IV; Rate: bolus; Site: right antecubital; ww 17:46 Not Given (Patient Refused): Aspirin Chewable Tablet 324 mg PO once; 81 mg tablets x 4 bp Intake: 16:24 IV: 100ml; Total: 100ml. bp Outcome: 15:18 Decision to Hospitalize by Provider. pm1 21:31 Admitted to Med/surg via stretcher. ww 21:31 Condition: stable 21:31 Instructed on the need for admit. 21:32 Patient left the ED. ww Signatures: Dispatcher [employer] EDDeborah Cullen RN RN iw Hugo Kathleen, MEDICAL OFFICE ASSISTANT INSTRUCTOR MEDICAL OFFICE ASSISTANT INSTRUCTOR pm1 Omer Valdez RN RN Barbara Taylor 2 Jerome Feliz Mary mb7 Nevin Khalil RN RN ww Corrections: (The following items were deleted from the chart) 14:09 12:45 BP 112 / 82; Pulse 117bpm; Resp 18bpm; Spontaneous; Pulse Ox 100% RA; iw iw 15:37 15:00 Pulse 113bpm; Resp 17bpm; Pulse Ox 100%; bp bp 15:38 12:45 BP 112 / 82; Pulse 117bpm; Resp 18bpm; Spontaneous; Pulse Ox 100% RA; Temp 97.3F bp Temporal; iw 16:24 12:45 BP 112 / 82; Pulse 117bpm; Resp 18bpm; Spontaneous; Pulse Ox 100% RA; Temp 97.3F bp Temporal; bp
--- NOTE | 2021-10-31 15:19 | EDPHYS ---
Physician Documentation [facility] Name: Lobito Holder Age: 76 yrs Sex: Male : 1945 Arrival Date: 10/31/2021 Time: 12:44 Bed 20 Private MD: ED Physician Fredis Hernandez HPI: 10/31 13:10 This 76 yrs old Male presents to ER via EMS with complaints of Fall Injury. pm1 13:10 Details of fall: The patient fell from an upright position, while walking. Onset: The pm1 symptoms/episode began/occurred this morning. Associated injuries: The patient sustained no obvious injury. The patient has not recently seen a physician. Negative for chest pain, shortness of breath, headache, head injury, neck pain. Patient reports that he was walking in the house this AM and his right knee buckled and he fell to the ground. He is not complaining of any pain or injury. He was on the ground since his fall this AM. Historical: - Allergies: 13:28 No Known Allergies; iw - PMHx: 13:28 Hypertension; CAD; iw ROS: 13:10 Cardiovascular: Negative for chest pain, palpitations, and edema, Respiratory: Negative pm1 for shortness of breath, cough, wheezing, and pleuritic chest pain, Abdomen/GI: Negative for abdominal pain, nausea, vomiting, diarrhea, and constipation, Back: Negative for injury and pain, MS/Extremity: Negative for injury and deformity, Skin: Negative for injury, rash, and discoloration. 13:10 Constitutional: Positive for poor PO intake, Negative for body aches, fever. 13:10 Neuro: Positive for weakness generalized, Negative for headache, loss of consciousness, head injury. 13:10 All other systems are negative. Exam: 13:10 Head/Face: Normocephalic, atraumatic. pm1 13:10 Back: No spinal tenderness. No costovertebral tenderness. Full range of motion. Skin: Warm, dry with normal turgor. Normal color with no rashes, no lesions, and no evidence of cellulitis. MS/ Extremity: Pulses equal, no cyanosis. Neurovascular intact. Full, normal range of motion. 13:10 Constitutional: The patient appears in no acute distress, alert, awake, comfortable, non-diaphoretic, non-toxic, well developed, unkempt. 13:10 Eyes: Exam is negative for acute changes, Extraocular movements: no acute changes, Conjunctiva: no acute changes, no injection. 13:10 ENT: Mouth: Lips: dry, Oral mucosa: dry. 13:10 Neck: Exam negative for acute changes, C-spine: appears grossly normal, no vertebral tenderness, no crepitus. 13:10 Cardiovascular: Exam negative for acute changes, Rate: tachycardic, Rhythm: regular, Pulses: no pulse deficits are appreciated, Heart sounds: normal, normal S1and S2, Edema: is not appreciated. 13:10 Respiratory: Exam negative for acute changes, respiratory distress, shortness of breath, Breath sounds: are clear throughout. 13:10 Abdomen/GI: Inspection: abdomen appears normal, Palpation: abdomen is soft and non-tender, in all quadrants. 13:10 Neuro: Exam negative for acute changes, Orientation: is normal, Motor: is normal, moves all fours. Vital Signs: 12:45 BP 112 / 82; Pulse 117; Resp 18 S; Temp 97.3(TE); Pulse Ox 100% on R/A; Weight 49.9 kg; bp 15:00 BP 91 / 63; Pulse 113; Resp 17; Pulse Ox 100% ; bp 16:00 BP 97 / 74; Pulse 110; Resp 24; Pulse Ox 98% ; bp 20:43 BP 89 / 70; Pulse 109; Resp 25; Temp 97.9; Pulse Ox 96% 00 lpm ; Pain 0/10; ww MDM: 12:58 Patient medically screened. pm1 15:00 Counseling: I had a detailed discussion with the patient and/or guardian regarding: the pm1 historical points, exam findings, and any diagnostic results supporting the discharge/admit diagnosis, lab results, radiology results, the need for further work-up and treatment in the hospital. 15:10 Physician consultation: William Lomas MD was called at 15:11, was contacted at 15:11, pm1 regarding consult, patient's condition, and will see patient tomorrow, would like further tests performed, echocardiogram, in AM. 15:11 Data reviewed: vital signs. Data interpreted: Pulse oximetry: on room air is 100 %. pm1 Interpretation: normal. 15:17 Physician consultation: Kvng Garcia DO was called at 15:17, was contacted at 15:17, pm1 regarding admission, patient's condition, and will see patient in ED. 10/31 13:09 Order name: CPK; Complete Time: 14:28 pm1 10/31 13:09 Order name: Basic Metabolic Panel; Complete Time: 14:28 pm1 10/31 13:09 Order name: CBC with Diff; Complete Time: 18:13 pm1 10/31 13:09 Order name: LFT's; Complete Time: 14:28 pm1 10/31 13:09 Order name: Magnesium; Complete Time: 14:28 pm1 10/31 13:09 Order name: NT PRO-BNP; Complete Time: 14:28 pm1 10/31 13:09 Order name: CT Head C Spine; Complete Time: 14:59 pm1 10/31 13:09 Order name: PT-INR; Complete Time: 14:06 pm1 10/31 13:09 Order name: Troponin (emerg Dept Use Only); Complete Time: 14:28 pm1 10/31 13:09 Order name: COVID-19/FLU A+B (Document "Date of Onset" if Symptomatic); Complete Time: pm1 14:59 10/31 17:44 Order name: Alcohol Serum/Plasma; Complete Time: 18:13 EDMS 10/31 17:50 Order name: CBC Smear Scan; Complete Time: 18:13 EDMS 10/31 18:06 Order name: Procalcitonin; Complete Time: 18:13 EDMS 10/31 19:45 Order name: Urine Drug Screen; Complete Time: 20:38 EDMS 10/31 13:09 Order name: XRAY Chest (1 view); Complete Time: 14:59 pm1 10/31 13:09 Order name: EKG; Complete Time: 13:10 pm1 10/31 13:09 Order name: Cardiac monitoring; Complete Time: 14:58 pm1 10/31 13:09 Order name: EKG - Nurse/Tech; Complete Time: 14:52 pm1 10/31 13:09 Order name: IV Saline Lock; Complete Time: 14:58 pm1 10/31 13:09 Order name: Labs collected and sent; Complete Time: 14:58 pm1 10/31 13:09 Order name: O2 Per Protocol; Complete Time: 14:58 pm1 10/31 13:09 Order name: O2 Sat Monitoring; Complete Time: 14:58 pm1 10/31 13:09 Order name: Urine Dipstick-Ancillary (obtain specimen); Complete Time: 19:29 pm1 Administered Medications: 14:11 Drug: NS 0.9% 1000 ml Route: IV; Rate: 1000 ml; Site: right hand; iw 16:24 Follow up: IV Status: Completed infusion; IV Intake: 100ml bp 15:30 Drug: Lovenox (enoxaparin) 1 mg/kg Route: Sub-Q; Site: left upper abdomen; bp 15:30 Drug: NS 0.9% 1000 ml Route: IV; Rate: 100 ml/hr; Site: left hand; bp 16:03 Drug: NS 0.9% 500 ml Route: IV; Rate: bolus; Site: right antecubital; ww 17:46 Not Given (Patient Refused): Aspirin Chewable Tablet 324 mg PO once; 81 mg tablets x 4 bp Disposition: 11/01 08:49 Co-signature as Attending Physician, Fredis Hernandez MD I agree with the assessment and trace plan of care. Disposition Summary: 10/31/21 15:18 Hospitalization Ordered Hospitalization Status: Inpatient Admission pm1 Provider: Kvng Garcia pm1 Location: Telemetry/MedSurg (Inpatient) pm1 Condition: Stable pm1 Problem: new pm1 Symptoms: have improved pm1 Bed/Room Type: Standard 1 Room Assignment: [facility](10/31/21 19:47) Diagnosis - Rhabdomyolysis pm1 Forms: - Medication Reconciliation Form pm1 - SBAR form pm1 Signatures: Dispatcher [employer] EDLatricia Diaz RN RN mw Anderson, Corey, MD MD cha Williams, Irene, RN RN iw Marinas, Patrick, NP SUPERVISOR pm1 Omer Valdez RN RN bp Wood, Whitney, RN RN ww Corrections: (The following items were deleted from the chart) 10/31 19:47 15:18 pm1 mw
--- NOTE | 2021-10-31 15:58 | P.HP ---
Certification for Inpatient Patient admitted to: Inpatient With expected LOS: >2 Midnights Patient will require the following post-hospital care: Other (SNF) Practitioner: I am a practitioner with admitting privileges, knowledge of patient current condition, hospital course, and medical plan of care. Services: Services provided to patient in accordance with Admission requirements found in Title 42 Section 412.3 of the Code of Federal Regulations Patient History Date of Service: 10/31/21 Primary Care Provider: Unknown Reason for admission: Fall, weakness History of Present Illness: 76-year-old male with history of hypertension, diabetes, peripheral vascular disease, CAD. Patient presented to the emergency room with increased weakness and fall. Patient was found at home disheveled. Not much of history was able to be obtained. Case discussed in detail with ER physician. Patient denies any fever, chills, nausea vomiting, chest pain or shortness of breath. In the ER patient was evaluated. Patient found to be dehydrated and disheveled. Patient received IV fluids. Covid test negative. CT head neck unremarkable. Troponin I 0.03. CK elevated at 3846. White count 20.8, hemoglobin 16. Chest x-ray shows no pneumonia. Possible early CHF. Patient admitted for further evaluation and treatment. Allergies No Known Allergies Allergy (Verified 08/29/16 09:54) Home medications list reviewed: Yes Home Medications: Metformin ER [Glucophage ER*] 1 tab PO DAILY 07/26/20 Rosuvastatin [Crestor*] 2 tab PO BEDTIME 07/26/20 Amlodipine [Norvasc*] 1 tab PO DAILY 30 Days #30 tab 07/27/20 Lisinopril/Hydrochlorothiazide [Lisinopril-Hctz 20-12.5 mg Tab] 1 tab PO DAILY 30 Days #30 07/27/20 Nitroglycerin [Nitrostat*] 1 tab SL UD PRN #20 tab 07/27/20 - Past Medical/Surgical History -: Coronary artery disease -: Hypertension -: Diabetes mellitus type 2 -: Hyperlipidemia -: Peripheral vascular disease -: Alcohol use -: CABG -: Cardiac stent Psychosocial/ Personal History: Patient lives at home. Patient reports no family. - Family History Brother -: Diabetes - Social History Smoking Status: Never smoker Alcohol use: No CD- Drugs: No Caffeine use: No Place of Residence: Home Review of Systems General: Weakness, As per HPI Eyes: Unremarkable ENT: Unremarkable Respiratory: Unremarkable Cardiovascular: Unremarkable Gastrointestinal: Unremarkable Genitourinary: Unremarkable Musculoskeletal: As per HPI Integumentary: As per HPI Neurological: Unremarkable Lymphatics: Unremarkable Physical Examination - Studies Laboratory Data (last 24 hrs) 10/31/21 13:39: PT 11.9, INR 1.03 10/31/21 13:39: WBC 20.80 H*, Hgb 16.5, Hct 49.1 H, Plt Count 351 10/31/21 13:39: Sodium 141, Potassium 3.8, BUN 30 H, Creatinine 1.05, Glucose 109 H, Magnesium 2.5 H D, Total Bilirubin 1.0, AST 135 H, ALT 55, Alkaline Phosphatase 50 Assessment and Plan - Plan COVID: Negative Influenza: Negative CXR: COMPARISON: Chest Single View dated 07/26/2020; Chest Pa And Lat (2 Views) dated 04/11/2019; CHEST PA AND LAT 2 VIEW dated 03/19/2015 FINDINGS: Portable technique limits examination quality. Mild pulmonary edema is present. The heart is moderately enlarged. Sternotomy wires present.Small hiatal hernia. IMPRESSION: Mild CHF. CT head/neck: COMPARISON: No comparisons TECHNIQUE: Axial 5 mm thick images of the head were obtained. Axial 2 mm thick images of the cervical spine were obtained with sagittal and coronal reconstruction images generated and reviewed. All CT scans are performed using dose optimization technique as appropriate and may include automated exposure control or mA/KV adjustment according to patient size. FINDINGS: CT HEAD WITHOUT CONTRAST: No acute hemorrhage, hydrocephalus or extra-axial collection is identified.No areas of brain edema or midline shift. Moderate generalized brain atrophy is pr esent with moderate periventricular and deep white matter chronic microvascular ischemic changes. Small amount of fluid is seen left maxillary antrum. The paranasal sinuses and mastoids are otherwise clear.Vertebral atherosclerosis.The calvarium is intact. CT CERVICAL SPINE WITHOUT CONTRAST: No fracture or subluxation.Moderate multilevel degenerative spondylosis of the cervical spine present.No prevertebral soft tissues swelling is identified. IMPRESSION: No acute intracranial or cervical spine findings. Moderate multilevel cervical degenerative changes Physical Exam: GENERAL: Patient appears disheveled. Patient now well-kept. VITAL SIGNS: Reviewed HEENT: Head is normocephalic and atraumatic. Extraocular muscles are intact. Pupils are equal, round, and reactive to light and accommodation. Nares appeared normal. Dry mucous membranes NECK: Supple. No carotid bruits. No lymphadenopathy or thyromegaly. LUNGS: Clear to auscultation. No crackles or wheezes are heard. HEART: Regular rate and rhythm, no appreciable gallops, rubs, murmurs or extra heart sounds ABDOMEN: Soft, nontender, and nondistended. Positive bowel sounds. No hepatosplenomegaly was noted. EXTREMITIES: Dry skin. Patient disheveled. NEUROLOGIC: The patient is oriented to person, place and time. Strength and sensation are grossly intact. Face is symmetric. SKIN: Dry skin. Patient with poor vascular disease to the lower extremity Impression: Fall, weakness secondary to acute rhabdomyolysis Elevated troponin likely ischemic demand with underlying history of CAD, PVD Hypertension Diabetes mellitus type 2 Acute renal insufficiency likely dehydration Alcohol abuse Leukocytosis likely related to above Plan: Fall, weakness secondary to acute rhabdomyolysis: Patient will be admitted for further evaluation. Patient given IV fluid bolus to 1.5 L. Continue IV fluid hydration. We will continue monitor lab closely. Monitor CK. Physical therapy to assess ambulation. Will need to evaluate home situation. Patient would benefit with skilled placement. We will continue to monitor closely. Case di scussed with cardiology. Will obtain echocardiogram. Elevated troponin likely ischemic demand. Will need to evaluate alcohol level. Check urine drug screen. Will monitor closely. Will start thiamine and folic acid. Continue to hold Metformin, lisinopril hydrochlorothiazide. Elevated troponin likely ischemic demand with underlying history of CAD, PVD: Spoke with cardiology. Continue as above. Will check echocardiogram. Likely no need for intervention. Hypertension: Patient takes lisinopril hydrochlorothiazide, lisinopril and Norvasc. Will hold blood pressure medication at this time. If blood pressure needs to be restarted we will start with Norvasc. Diabetes mellitus type 2: We will check A1c. Accu-Cheks in place. Hold Metformin due to acute rhabdomyolysis. Acute renal insufficiency likely dehydration: Hold lisinopril, hydrochlorothiazide, metformin. Continue with IV fluids. Alcohol abuse: We will start folic acid and thiamine. Will check alcohol level and drug screen. Leukocytosis likely related to above: We will send blood cultures. Empirically start Rocephin. We will continue to monitor closely. Code Status: Full Code DVT prophylaxis: Lovenox Advanced Care Planning-30 minutes: Need to rediscuss with patient about plan for discharge. Patient would benefit with skilled placement. Discharge Plan: Other (Skilled placement) Plan to discharge in: Greater than 2 days - Advance Directives Does patient have a Living Will: No Does patient have a Durable POA for Healthcare: No - Code Status/Comfort Care Code Status Assessed: Yes (Full code) Time Spent Managing Pts Care (In Minutes): 55
[2021-10-31] MEDS ORDERED: ENOXAPARIN 40 MG/0.4 ML SQ ONE (17:34)
[2021-10-31 17:49] LABS: Blood Morphology Comment NOT SEEN (NOT SEEN); Platelet Estimate ADEQ; White Blood Cell Scan OK (OK)
[2021-10-31 19:45] LABS: Barbiturates NEGATIVE (NEGATIVE); Benzodiazepines NEGATIVE (NEGATIVE); Cocaine NEGATIVE (NEGATIVE); METHAMPHETAM NEGATIVE (NEGATIVE); Methadone NEGATIVE (NEGATIVE); Opiates NEGATIVE (NEGATIVE); Phencyclidine NEGATIVE (NEGATIVE); THC Cannibis NEGATIVE (NEGATIVE)
[2021-10-31] MEDS ORDERED: ACETAMINOPHEN 500 MG TAB PO PRN (20:11)
[2021-10-31] MEDS ORDERED: ONDANSETRON 4 MG/2 ML VIAL IV PRN (20:11)
[2021-10-31] MEDS ORDERED: INSULIN -REGULAR HUMAN 50 UNIT/0.5 ML ML SQ SCH (20:11)
[2021-10-31 22:02] LABS: CKMB Creatine Kinase MB 45.2 ng/mL (1.0-3.6); Troponin I 1.02 ng/mL (0.0-0.045)
[2021-10-31] MEDS ORDERED: NA CHLORIDE 0.9% 1,000 ML IV ONE (23:51)
[2021-11-01] MEDS: MIDODRINE HCL 5 MG TABLET PO SCH ×4 (00:11→20:44)
--- NOTE | 2021-11-01 00:14 | P.PN ---
Date of Service: 11/01/21 admitted earlier today , noted with more weakness of left side now , will repeat head CT , initial scan was negative - if still negative , may need MRI brain in am - still low BP, bolus NS 1 L now , start midodrine - early pul edema on CXR noted - still elevated but stable troponin - may be due to acute rhabdomyolysis
[2021-11-01] MEDS ORDERED: NA CHLORIDE 0.9% 1,000 ML IV ONE (01:50)
[2021-11-01] MEDS: CEFTRIAXONE 1,000 MG in NA CHLORIDE 0.9% 50 ML IVPB SCH ×2 (01:52→09:53)
[2021-11-01] MEDS: NA CHLORIDE 0.9% 1,000 ML IV SCH ×2 (01:53→06:11)
[2021-11-01 02:10] LABS: Urine Appearance CLEAR (Clear); Urine Blood 2+ (Negative); Urine Color DK YELLOW (Yellow); Urine Glucose NEGATIVE (Negative); Urine Protein 1+ (Negative); Urine pH 5.5 (5.0-7.0)
--- NOTE | 2021-11-01 02:15 | P.PN ---
Date of Service: 11/01/21 pt again seen , still drowsy , repeat Head CT pending , still decreased power 2/5 in left side -failed swallow eval - still low bp , Rocephin first dose being given now , will add lactate level - repeat NS given , add levaquin emprically , obtain UA
[2021-11-01] MEDS: VANCOMYCIN 1 GM in NA CHLORIDE 0.9% 250 ML IVPB SCH ×2 (02:20→09:00)
[2021-11-01] MEDS ORDERED: ASPIRIN 600 MG/SUPP PR ONE (02:22)
[2021-11-01] MEDS: Levofloxacin500mg IV 500 MG/100 ML BAG IV SCH (02:30)
--- NOTE | 2021-11-01 02:32 | P.PN ---
Date of Service: 11/01/[address] reviewed, multiple hypodensities in separate areas worrisome for acute MCA infract given pattern of involvement , l am worried about endocarditis in this patient -will add vancomycin, heparin gtt, dose aspirin per rectal now -obtain echo and carotid us , neuro consult in am
[2021-11-01] MEDS ORDERED: HEPARIN/D5W 25,000 UNIT/500 ML BAG IV SCH (03:00)
[2021-11-01 03:21] LABS: Absolute Lymphocytes (CBC) 1.5 K/uL (0.7-4.9); Hematocrit 42.7 % (39.6-49.0); Lymphocytes % 11.4 % (15.3-44.8); MPV 7.3 fL (7.6-11.3); RBC Red Blood Cell Count 4.76 M/uL (4.33-5.43)
[2021-11-01 03:21] LABS: Urine Microscopic Reflex ORDER UMIC
[2021-11-01 03:26] LABS: Urine Bilirubin 2+ (Negative)
[2021-11-01 03:47] LABS: ALT/SGPT 49 U/L (12-78); AST/SGOT 146 U/L (15-37); Albumin 2.4 g/dL (3.4-5.0); Alkaline Phosphatase 35 U/L (45-117); BUN Blood Urea Nitrogen 30 mg/dL (7-18); Bicarbonate 23 mmol/L (21-32); Bilirubin Total 0.8 mg/dL (0.2-1.0); Glucose Level 72 mg/dL (74-106); HDL Cholesterol 52 mg/dL (40-60); LDL Cholesterol, Calculated 13 (<130); Magnesium 2.1 mg/dL (1.8-2.4); Potassium 3.8 mmol/L (3.5-5.1); Protein, Total 6.2 g/dL (6.4-8.2); Sodium Level 144 mmol/L (136-145); Thyroid Stimulating Hormone 0.698 uIU/mL (0.360-3.740)
[2021-11-01 04:12] LABS: CKMB Creatine Kinase MB 53.9 ng/mL (1.0-3.6)
[2021-11-01 04:17] LABS: Urine Bacteria <20 /HPF (NONE SEEN); Urine RBC <5 /HPF (NONE SEEN)
[2021-11-01] MEDS ORDERED: D50W 25 GM/50 ML SYRINGE IV ONE ×2 (05:20)
[2021-11-01] MEDS ORDERED: D50W 25 GM/50 ML SYRINGE IV PRN (05:28)
[2021-11-01] MEDS: INSULIN -REGULAR HUMAN 50 UNIT/0.5 ML ML SQ SCH ×3 (05:30→18:00)
--- NOTE | 2021-11-01 06:00 | P.PN ---
Subjective Date of Service: 11/01/21 Primary Care Provider: Unknown Chief Complaint: Fall, weakness Subjective: New changes (Patient had a change in status last night. Patient with left-sided weakness. CT scan revealed CVA. Patient still with weakness to the left side.) Physical Examination - Vital Signs Temperature: 97.5 F Blood Pressure: 77/59 Pulse: 106 Respirations: 20 Pulse Ox (%): 97 - Studies Laboratory Data (last 24 hrs) 10/31/21 13:39: PT 11.9, INR 1.03 10/31/21 13:39: WBC 20.80 H*, Hgb 16.5, Hct 49.1 H, Plt Count 351 10/31/21 13:39: Sodium 141, Potassium 3.8, BUN 30 H, Creatinine 1.05, Glucose 109 H, Magnesium 2.5 H D, Total Bilirubin 1.0, AST 135 H, ALT 55, Alkaline Phosphatase 50 Assessment & Plan Discharge Plan: Other (SNF) Plan to discharge in: Greater than 2 days Physician Review Additional Text: COVID: Negative Influenza: Negative CXR: COMPARISON: Chest Single View dated 07/26/2020; Chest Pa And Lat (2 Views) dated 04/11/2019; CHEST PA AND LAT 2 VIEW dated 03/19/2015 FINDINGS: Portable technique limits examination quality. Mild pulmonary edema is present. The heart is moderately enlarged. Sternotomy wires present.Small hiatal hernia. IMPRESSION: Mild CHF. Initial CT head/neck: COMPARISON: No comparisons TECHNIQUE: Axial 5 mm thick images of the head were obtained. Axial 2 mm thick images of the cervical spine were obtained with sagittal and coronal reconstruction images generated and reviewed. All CT scans are performed using dose optimization technique as appropriate and may include automated exposure control or mA/KV adjustment according to patient size. FINDINGS: CT HEAD WITHOUT CONTRAST: No acute hemorrhage, hydrocephalus or extra-axial collection is identified.No areas of brain edema or midline shift. Moderate generalized brain atrophy is present with moderate periventricular and deep white matter chronic microvascular ischemic changes. Small amount of fluid is seen left maxillary antrum. The paranasal sinuses and mastoids are otherwise clear.Vertebral atherosclerosis.The calvarium is intact. CT CERVICAL SPINE WITHOUT CONTRAST: No fracture or subluxation.Moderate multilevel degenerative spondylosis of the cervical spine present.No prevertebral soft tissues swelling is identified. IMPRESSION: No acute intracranial or cervical spine findings. Moderate multilevel cervical degenerative changes Follow up CT head: Subtle hypodensities in the right frontal operculum, right parietal lobe, right posterior insula suspicious for acute right MCA territory infarct Physical Exam: GENERAL: Patient disheveled. Left-sided weakness to the left side. Patient failed swallow study this morning. VITAL SIGNS: Reviewed HEENT: Patient alert, cooperative NECK: Supple. No carotid bruits. No lymphadenopathy or thyromegaly. LUNGS: Clear to auscultation. No crackles or wheezes are heard. HEART: Regular rate and rhythm, no appreciable gallops, rubs, murmurs or extra heart sounds ABDOMEN: Soft, nontender, and nondistended. Positive bowel sounds. No hepatosplenomegaly was noted. EXTREMITIES: Dry skin. Patient disheveled. NEUROLOGIC: Weakness to the left side noted SKIN: Dry skin. 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 CT scan reviewed. CT scan shows acute MCA territory CVA. Continue aspirin. We will add folic acid, thiamine. We will hold off on Lipitor due to rhabdomyolysis. LDL less than 70. Will change heparin drip to Lovenox DVT prophylaxis. We will obtain echocardiogram to further evaluate. Protocol MRI to be obtained. Physical therapy, Occupational Therapy, and speech therapy to evaluate patient. Patient failed swallow study this morning with the nurse. Await recommendations from speech. Continue IV fluids. We will continue to monitor closely. Case discussed at length with cardiology. Will discuss with neurology. Midodrine added for maintaining his blood pressure. Fall, weakness secondary to acute rhabdomyolysis: Patient given fluid bolus in the emergency room. Continue with IV fluid hydration. Continue to hold Metf ormin, lisinopril hydrochlorothiazide. Spoke with cardiology. No intervention is planned. We will monitor CPK. Elevated troponin likely ischemic demand with underlying history of CAD, PVD: Continue as above. Obtain echocardiogram. Spoke with cardiology. No intervention is planned. Hypertension: Patient takes lisinopril hydrochlorothiazide, lisinopril and Norvasc at home. Continue to hold blood pressure medication at this time. Midodrine added to maintain blood pressure. Diabetes mellitus type 2: Hemoglobin A1c 5.2. Accu-Cheks in place. Continue to hold Metformin due to acute rhabdomyolysis. Acute renal insufficiency likely dehydration: Continue to hold lisinopril, hydrochlorothiazide, metformin. Continue with IV fluids. Alcohol abuse: Continue folic acid and thiamine. Will check alcohol level and drug screen. Leukocytosis likely related to above: Antibiotics adjusted last night. Continue with current IV antibiotic therapyRocephin, Levaquin, vancomycin. Await blood culture results. Will need to rule out endocarditis. Echocardiogram obtained. Code Status: Full Code DVT prophylaxis: Lovenox Advanced Care Planning-30 minutes: Continue to monitor closely. Patient would likely benefit with skilled placement versus inpatient rehab in the future. Await to see how he improves. Time Spent Managing Pts Care (In Minutes): 55
[2021-11-01] MEDS ORDERED: PANTOPRAZOLE 40MG TABLET PO SCH ×2 (06:30→07:30)
[2021-11-01] MEDS ORDERED: KCL 20 MEQ/100 mL IVPB 20 MEQ/100 ML BAG IV SCH (07:00)
--- NOTE | 2021-11-01 08:01 | RAD REPORT ---
EXAM DESCRIPTION: Lynda Single View11/01/2021 6:36 am CLINICAL HISTORY: Shortness of breath COMPARISON: October 31 FINDINGS: Lungs appear clear of acute infiltrate. Heart remains enlarged. Postsurgical changes involve the chest IMPRESSION: Mild CHF appears resolved
[2021-11-01] MEDS: D5 0.45 NS 1,000 ML IV SCH ×2 (08:30→18:11)
[2021-11-01] MEDS: ASPIRIN EC 81 MG TAB PO SCH (08:31)
[2021-11-01] MEDS ORDERED: [UNRECOGNIZED DRUG - OTHER] PR ONE (08:45)
[2021-11-01] MEDS ORDERED: ASPIRIN 300 MG/SUPP PR ONE (08:45)
[2021-11-01] MEDS ORDERED: THIAMINE HCL 100 MG TABLET PO SCH (09:00)
[2021-11-01] MEDS ORDERED: FOLIC ACID 1 MG TABLET PO SCH (09:00)
[2021-11-01] MEDS ORDERED: ENOXAPARIN 40 MG/0.4 ML SQ SCH (09:00)
[2021-11-01] MEDS ORDERED: SODIUM CHLORIDE 0.9% 10ML INJ IV PRN (10:34)
--- NOTE | 2021-11-01 11:13 | RAD REPORT ---
EXAM DESCRIPTION: CT - Head Brain Wo Cont - 11/01/2021 2:13 am ADDENDUM #1 THIS REPORT CONTAINS FINDINGS THAT MAY BE CRITICAL TO PATIENT CARE: I discussed the findings with Nurse Maeve Cheng on 11/01/2021 at 2:13 AM CREATIVE RECRUITER, who agreed to take the results on the phone on behalf o f the physician and acknowledges their critical nature. Electronically signed by: Panda Bean MD 11/01/2021 2:13 AM CREATIVE RECRUITER End of Addendum EXAM DESCRIPTION: Head Brain Wo Cont CLINICAL HISTORY: 76 years Male change in mental status TECHNIQUE: Axial noncontrast CT head with coronal and sagittal reformats. All CT scans at this [facility] it use dose modulation, iterative reconstruction, and/or weight based dosing when appropriate to red uce radiation dose to as low as reasonably achievable. COMPARISON: 10/31/2021. FINDINGS: Brain: Subtle hypodensities in the right frontal operculum, right parietal lobe and right posterior insula. Parenchymal volume loss. Chronic small vessel disease. No intracranial hemorrhage o r midline shift. Ventricles: No hydrocephalus. Orbits: Status post bilateral cataract surgeries. Sinuses: Partial opacification of the left maxillary sinus. Mastoid: Clear. Osseous: Unremarkable. Soft tissues: Unremarkable. IMPRESSION: Subtle hypodensities in the right frontal operculum, right parietal lobe and right poste rior insula suspicious for acute right MCA territory infarct. Electronically signed by: Panda Bean MD 11/01/2021 2:08 AM CREATIVE RECRUITER Due to temporary technical issues with the PACS/Fluency reporting system, reports are being signed by the in house radiologist without review as a courtesy to ensure prompt reporting. The interpreting r adiologist is fully responsible for the content of the report.
--- NOTE | 2021-11-01 11:17 | EKG ---
Test Date: 2021-10-31 Test Time: 14:51:40 Business Integration Analyst: MBB MEASUREMENT RESULTS: Intervals: Rate: 106 OR: 128 QRSD: 96 QT: 376 QTc: 499 [place]: P: 57 OR: 128 QRS: 71 T: 244 INTERPRETIVE STATEMENTS: Sinus tachycardia with occasional premature ventricular complexes ST & T wave abnormality, consider inferior ischemia ST & T wave abnormality, consider anterolateral ischemia Abnormal ECG Compared to ECG 10/31/2021 14:51:13 No significant changes Electronically Signed On 11-01-21 11:14:14 DAMAGE INSIDE ADJUSTER by William Lomas
--- NOTE | 2021-11-01 11:17 | EKG ---
Test Date: 2021-10-31 Test Time: 14:51:13 Quarter Section Ironer: AMBER MEASUREMENT RESULTS: Intervals: Rate: 111 MI: 130 QRSD: 96 QT: 346 QTc: 470 [place]: P: 60 MI: 130 QRS: 69 T: -86 INTERPRETIVE STATEMENTS: Sinus tachycardia with occasional premature ventricular complexes ST & T wave abnormality, consider inferior ischemia ST & T wave abnormality, consider anterolateral ischemia Abnormal ECG Compared to ECG 07/26/2020 09:05:17 Possible ischemia now present Sinus rhythm no longer present Sinus arrhythmia no longer present ST (T wave) deviation still present Electronically Signed On 11-01-21 11:14:15 COMPUTER SYSTEMS ARCHITECT by William Lomas
--- NOTE | 2021-11-01 11:41 | ECHO ---
HEIGHT: 5 ft 10 in WEIGHT: 205 lb 6.4 oz DATE OF STUDY: 11/01/[address]: Kvng Garcia DO 2-DIMENSIONAL: YES M.MODE: YES DOPPLER: YES COLOR FLOW: YES TDS: PORTABLE: YES DEFINITY: BUBBLE STUDY: DIAGNOSIS: CEREBRAL VASCULAR ACCIDENT, RULE OUT VEGETATION CARDIAC HISTORY: CATHERIZATION: YES SURGERY: YES PROSTHETIC VALVE: NO PACEMAKER: NO MEASUREMENTS (cm) DIASTOLIC (NORMALS) SYSTOLIC (NORMALS) IVSd 1.0 (0.6-1.2) LA Diam 2.4 (1.9-4.0) LVEF 56% LVIDd 4.5 (3.5-5.7) LVIDs 3.2 (2.0-3.5) %FS 29% LVPWd 1.1 (0.6-1.2) Ao Diam 3.0 (2.0-3.7) 2 DIMENSIONAL ASSESSMENT: RIGHT ATRIUM: NORMAL LEFT ATRIUM: NORMAL RIGHT VENTRICLE: NORMAL LEFT VENTRICLE: NORMAL TRICUSPID VALVE: NORMAL MITRAL VALVE: NORMAL PULMONIC VALVE: NORMAL AORTIC VALVE: NORMAL PERICARDIAL EFFUSION: NONE AORTIC ROOT: NORMAL LEFT VENTRICULAR WALL MOTION: NORMAL DOPPLER/COLOR FLOW: MILD TRICUSPID REGURGITATION, MITRAL REGURGITATION. COMMENTS: MILD MITRAL REGUGITATION, TRICUSPID REGURGITATION. NORMAL LEFT VENTRICULAR EJECTION FRACTION. NO VEGETATION. NO WALL MOTION ABNORMALITY. TECHNOLOGIST: KERWIN HENRY
[2021-11-01] MEDS: THIAMINE 200 MG/2 ML INJ IVP SCH (11:44)
[2021-11-01] MEDS: PANTOPRAZOLE 40 MG INJ IVP SCH (11:44)
--- NOTE | 2021-11-01 13:23 | RAD REPORT ---
EXAM DESCRIPTION: USCarotid Artery Bilateral11/01/2021 4:02 am CLINICAL HISTORY: CVA COMPARISON: None FINDINGS: The velocity of the right internal carotid artery equals 33 cm/sec. The right ICA/CCA rati o 1.3 The velocity of the left internal carotid artery equals 238 cm/sec. The left ICA/CCA ratio 1.7 Mild plaque is present within the right internal carotid artery. Moderate plaque within the left inte rnal carotid artery. High-grade stenosis left external carotid artery The vertebral arteries demonstrate antegrade flow IMPRESSION: Moderate plaque within the left internal carotid artery resulting approximately 65% sten osis NASCET criteria used. Mild 0-49% stenosis Moderate 50-69% stenosis Severe 70-99% stenosis
[2021-11-01] MEDS: VANCOMYCIN 1.75 GM in NA CHLORIDE 0.9% 500 ML IVPB SCH (15:00)
--- NOTE | 2021-11-01 16:56 | CON ---
Reason For Consultation: Consultation called because of stroke. History Of Present Illness: Mr. Holder is 76-year-old patient with diabetes mellitus, hypertension , coronary artery disease, and chronic long-term alcohol use, who came to [facility] after h e was found disheveled and unable to ambulate due to left-sided weakness. At [facility], hi s initial trauma series which included head and cervical spine imaging showed no acute abnormalities. There was generalized brain atrophy with moderate periventricular deep white matter small vessel is chemic disease. However, repeat CT scan done on the 4th that is earlier today did identify subtle hy podensities in the right frontal operculum, in the right parietal lobe and right posterior insula, wh ich are suspicious for an acute right middle cerebral artery stroke. The patient is in the ICU. He was evaluated by Speech and determined to have significant dysphagia, was mentioned of thickened liqu ids and pureed consistencies; however, at bedside, the patient is choking with little sips. His carotid artery ultrasound study showed moderate plaque in the left internal carotid artery about 65% and his echocardiogram showed ejection fraction 56% with mild mitral regurgitation, tricuspid reg urgitation, but no vegetation or wall motion abnormalities. Blood work initially showed elevated whi te count of 20.8, which may be consistent with potential infection and his chest x-ray did show mild pulmonary edema with sternotomy wires noted. His blood cultures aerobic and anaerobic have been nega tive so far, but are still pending. Repeat white blood cell count today is 13.3 and neutrophils 77.6 . The rest of his complete blood count is essentially unremarkable. His chemistries did reveal elev ated creatine kinase of 4961, CK-MB elevated at 53.9 consistent with fall and potentially on the floo r for prolong. His creatinine was 0.83 and LDL 13, HDL 52. Procalcitonin was negative at less than 0.05. His urinalysis showed 1+ protein, 2+ bilirubin, 2+ blood, 1+ ketones. His urine tox screen wa s negative. Alcohol serum was less than 10 and his COVID-19 test was negative. Past Medical History: As noted in addition to peripheral vascular disease, dyslipidemia, diabetes me llitus type 2, hypertension. Past Surgical History: Cardiac stent and coronary artery bypass grafting. Social History: The patient currently drinks 4 to 5 beer on a regular basis at least daily. He may as well uses tobacco. Family History: Brother with diabetes. Allergies: NO KNOWN DRUG ALLERGIES. Medications: At home metformin daily, Crestor at bedtime, Norvasc daily, lisinopril and hydrochlorot hiazide daily, Nitrostat sublingual daily. Review of Systems: At this point, not quite reliable. The patient does have slurred speech and have some difficulty fol lowing commands. It crossed the midline, but he denied any recent fevers or chills, any recent myalg ias or arthralgias. Physical Examination: Vital Signs: Blood pressure 101/64, pulse of 103, temperature 97.5, oxygen saturation 97% on room ai r, respiratory rate 16 to 20. Weight 205 pounds, height 5 feet 10 inches, BMI 29. General: Mr. Holder is in bed, in no significant distress. He appears somewhat disheveled and old er than stated age. HEENT: He has otherwise no obvious trauma to the face. No external trauma noted to the extremities. Lungs: He does have decreased air movement bilaterally. Extremities: Some areas of apparent insect bites on the right leg and mild edema to the lower extrem ities on the right more than left. Neurologic: His cranial nerve examination shows decreased left nasolabial fold, some decreased light touch in the left compared to the right and otherwise some difficulty with lingual, labial and guttu ral sounds. Motor examination in his upper extremity on the left side, he has 2/5 at the biceps, wri st flexion and extension 0/5, deltoid 0/5. In the lower extremity on the left side, no movement note d voluntarily proximally and distally with 0/5 in the right upper and lower extremity 5/5. Sensory e xam decreased to light touch temperature in the left compared to right upper and lower extremity. Un able to do any coordination examination in the left lower extremity due to his extreme weakness. He has not been up and ambulated with his extreme weakness. NIH Stroke Scale of 10. Assessment: Mr. Holder is a 76-year-old patient with a right MCA distribution stroke, significant deficits of the arm and leg with some speech and swallowing and sensation involvement, unable to ambu late, and sensory involvement in the left upper and lower extremities. He does have a history of alc ohol use, also has coronary artery disease status post coronary artery bypass and stenting, dyslipide katy, hypertension, diabetes mellitus, and is likely to be a candidate for alcohol withdrawal. Plan: 1.Continue with thiamine, folic acid, multivitamin. May give IV as the patient has significant risk of aspiration. 2.He should be on aspirin along with Plavix and Lovenox in addition for potential an infection with a very elevated white count. He is on Rocephin and he did have Levaquin as well. 3.He should have IV hydration. 4.He may be evaluated by Physical and Occupational Therapy to determine what level of rehabilitation will be appropriate. 5.The patient does have an MRI pending that will be followed at the time it is done and may also do MRA of the head and neck. GAYLE/ANITHA Voice ID: [id number] Report ID: [id number]
[2021-11-01] MEDS: ENOXAPARIN 40 MG/0.4 ML SQ SCH (18:10)
--- NOTE | 2021-11-01 18:26 | CON ---
Date of Consultation: 10/31/2021 Reason For Consultation: Abnormal troponin. History Of Present Illness: Mr. Holder is a patient, who has a history of coronary artery disease. He had 100% occlusion of his RCA years ago. Has a history of normal ejection fraction, was found u nresponsive. Had significant rhabdomyolysis with CPKs of 4961. Troponin was 1.03. He had a white c ount of 20,000. I was unable to obtain a recent history from him because he was obtunded, but he den ied any chest pain. He denied any fever or chills. Past Medical History: As stated above. Allergies: NONE. Review of Systems: Negative. Social History: Negative. Medications: At home include aspirin. Physical Examination: General: He was obtunded, but alert and oriented to name and place. Vital Signs: Stable, afebrile. HEENT: Negative. Neck: Supple with no bruit. Chest: Clear. Cardiac: Revealed a regular rhythm and rate with aortic sclerosis murmur. No gallops or rubs. Abdomen: Benign. Extremities: Revealed no clubbing, cyanosis, or edema. Diagnostic Data: EKG was unremarkable. White count was 20,000. CPK was 4961. Troponin 1.03. Impression And Plan: 1.Elevated troponin secondary to rhabdomyolysis and demand ischemia. 2.Elevated white count. 3.Elevated troponin. 4.Altered mental status. Echocardiogram is pending. I think we should do neurological consultation to see what the echocardiogram shows and we will continue to follow. EDNA/ANITHA Voice ID: [id number] Report ID: [id number]
[2021-11-01] MEDS: TRAMADOL HCL 50 MG TAB PO PRN (18:45)
--- NOTE | 2021-11-01 19:45 | PN ---
The patient was admitted with elevated troponin, rhabdomyolysis, altered mental status. He had an ep isode of weakness in the left extremity and was admitted to the ICU for possible stroke. Neurologica l consultation has been obtained. Echocardiogram did not show any evidence of wall motion abnormalit ies or vegetation or thrombus. He had a normal ejection fraction, normal wall motion. Again, I stil l think he has elevated troponin secondary to demand ischemia. We will see what neurological evaluat ion shows, but from a cardiac standpoint, I will continue his present regimen. I will be available f or questions if the need arise, and I will continue to follow him as long as he is in the hospital. EDNA/ANITHA Voice ID: [id number] Report ID: [id number]
[2021-11-01 20:06] VITALS: O2SAT 98
[2021-11-02] MEDS: VANCOMYCIN 1.75 GM in NA CHLORIDE 0.9% 500 ML IVPB SCH ×2 (02:12→14:13)
[2021-11-02] MEDS: Levofloxacin500mg IV 500 MG/100 ML BAG IV SCH (04:24)
[2021-11-02 05:01] LABS: Absolute Lymphocytes (CBC) 1.6 K/uL (0.7-4.9); Lymphocytes % 18.4 % (15.3-44.8); MPV 7.4 fL (7.6-11.3); RBC Red Blood Cell Count 4.32 M/uL (4.33-5.43)
[2021-11-02] MEDS: D5 0.45 NS 1,000 ML IV SCH ×3 (05:28→18:01)
[2021-11-02] MEDS: INSULIN -REGULAR HUMAN 50 UNIT/0.5 ML ML SQ SCH ×4 (06:00→18:00)
[2021-11-02 06:11] LABS: ALT/SGPT 64 U/L (12-78); AST/SGOT 115 U/L (15-37); Albumin 2.2 g/dL (3.4-5.0); Alkaline Phosphatase 38 U/L (45-117); BUN Blood Urea Nitrogen 11 mg/dL (7-18); Bicarbonate 25 mmol/L (21-32); Creatine Phosphokinase 1221 U/L (39-308); Glucose Level 92 mg/dL (74-106); Potassium 2.9 mmol/L (3.5-5.1); Sodium Level 144 mmol/L (136-145)
[2021-11-02] MEDS: CEFTRIAXONE 1,000 MG in NA CHLORIDE 0.9% 50 ML IVPB SCH (07:59)
[2021-11-02] MEDS: PANTOPRAZOLE 40 MG INJ IVP SCH (07:59)
[2021-11-02] MEDS: ASPIRIN EC 81 MG TAB PO SCH (08:00)
[2021-11-02] MEDS: THIAMINE 200 MG/2 ML INJ IVP SCH (08:00)
[2021-11-02] MEDS: KCL 20 MEQ/100 mL IVPB 20 MEQ/100 ML BAG IV SCH ×3 (08:00→11:57)
[2021-11-02] MEDS: CLOPIDOGREL 75 MG TABLET PO SCH (08:00)
[2021-11-02] MEDS: MIDODRINE HCL 5 MG TABLET PO SCH ×3 (08:00→20:09)
[2021-11-02] MEDS ORDERED: FOLIC ACID 5 MG/ML VIAL IVP SCH (09:00)
[2021-11-02] MEDS: FOLIC ACID 1 MG in NA CHLORIDE 0.9% 50 ML IV SCH (09:23)
[2021-11-02] MEDS: TRAMADOL HCL 50 MG TAB PO PRN ×2 (16:32→22:19)
[2021-11-02] MEDS: ENOXAPARIN 40 MG/0.4 ML SQ SCH (16:33)
--- NOTE | 2021-11-02 16:47 | RAD REPORT ---
EXAM DESCRIPTION: MRI - MRA Neck W/Wo Cont - 11/02/2021 4:17 pm CLINICAL HISTORY: Acute CVA COMPARISON: None. TECHNIQUE: Magnetic resonance angiogram of the neck was performed. Twenty cc MultiHance was administ ered intravenously. 3D MIPS reconstruction performed FINDINGS: There appears to be a high-grade stenosis involving the brachiocephalic artery. Moderate plaque left carotid bulb. Mild plaque within the common carotid and right internal carotid arteries. The left vertebral artery is dominant. Right vertebral artery is small with portions not well opacifi ed with contrast. The basilar artery is ectatic with a diameter measuring up to 7 millimeters. IMPRESSION: Moderate plaque left carotid bulb There appears be a high-grade stenosis brachiocephalic artery. It is uncertain if this is a real find ing or secondary to artifact. CT angiogram neck would be helpful for further evaluation. Ectatic basilar artery Right vertebral artery is small with portions not well opacified with contrast. This could simply be secondary to it being hypoplastic. Chronic dissection is another consideration NASCET criteria used. Mild 0-49% stenosis Moderate 50-69% stenosis Severe 70-99% stenosis
--- NOTE | 2021-11-02 16:47 | RAD REPORT ---
EXAM DESCRIPTION: MRI - MRA Head Wo Cont - 11/02/2021 4:16 pm CLINICAL HISTORY: Acute CVA COMPARISON: None. TECHNIQUE: Magnetic resonance angiogram was performed. 3D MIPS reconstruction performed FINDINGS: Limited examination secondary to motion artifact Hypoplastic A1 segment right anterior cerebral artery. Branches of the right middle cerebral artery are narrowed. Poor visualization of the posterior cerebral arteries. Little signal within a 1.2 centimeter segment of the distal right internal carotid artery. Left anterior cerebral, left middle cerebral and left internal carotid arteries unremarkable IMPRESSION: Little signal within a 1.2 centimeter segment of the distal right internal carotid arter y may represent thrombus. Artifact is a another consideration. CT angiogram of the neck may be helpfu l for further evaluation Diminished signal within branches of the right middle cerebral artery
--- NOTE | 2021-11-02 16:48 | RAD REPORT ---
EXAM DESCRIPTION: MRI - Brain W/Wo Cont - 11/02/2021 4:17 pm CLINICAL HISTORY: Acute CVA COMPARISON: head CT November 01, 2020 TECHNIQUE: Axial, sagittal, and coronal magnetic images of the brain were obtained. 20 cc MultiHance administered intravenously FINDINGS: The ventricles are normal in caliber. Mild to moderate signal within periventricular, deep and subcor tical white matter likely ischemic changes secondary to small vessel disease Diffusion-weighted/ ADC mapping sequences demonstrate 6.6 centimeter area of abnormal signal within t he right insula, right parietal and right frontal lobes. Additional very small areas of abnormal sign al are present within the right parietal and right frontal lobes. These are all compatible with acute infarction. No abnormal enhancement within the brain is seen. An extra-axial fluid collection is not noted. Mild left maxillary sinusitis IMPRESSION: Acute right cerebral infarction
--- NOTE | 2021-11-02 18:39 | RAD REPORT ---
EXAM DESCRIPTION: US - Lower Extremity Arterial Bilat - 11/02/2021 6:24 pm CLINICAL HISTORY: Leg pain COMPARISON: None FINDINGS: The common femoral, superficial femoral, popliteal, dorsalis pedis and posterior tibial arteries dem onstrate monophasic waveforms . Prominent superficial femoral arterial calcifications bilaterally. A 4 centimeter right Sylvester's cyst Grayscale, color and spectral analysis performed on all vessels IMPRESSION: Monophasic bilateral arterial waveforms. This may indicate aortoiliac disease
[2021-11-02] MEDS: JUVEN PACKET PO SCH (20:09)
[2021-11-02] MEDS ORDERED: POTASSIUM 25 MEQ EFFERV TAB PO ONE (21:00)
[2021-11-03] MEDS: VANCOMYCIN 1.75 GM in NA CHLORIDE 0.9% 500 ML IVPB SCH ×2 (01:17→15:22)
[2021-11-03] MEDS: Levofloxacin500mg IV 500 MG/100 ML BAG IV SCH (03:18)
[2021-11-03] MEDS: TRAMADOL HCL 50 MG TAB PO PRN ×3 (04:45→19:52)
[2021-11-03 05:07] LABS: Absolute Lymphocytes (CBC) 1.6 K/uL (0.7-4.9); Hematocrit 37.7 % (39.6-49.0); Lymphocytes % 21.9 % (15.3-44.8); RBC Red Blood Cell Count 4.18 M/uL (4.33-5.43)
[2021-11-03 05:21] LABS: ALT/SGPT 65 U/L (12-78); AST/SGOT 80 U/L (15-37); Alkaline Phosphatase 44 U/L (45-117); BUN Blood Urea Nitrogen 8 mg/dL (7-18); Bicarbonate 26 mmol/L (21-32); Bilirubin Total 0.9 mg/dL (0.2-1.0); Creatine Phosphokinase 387 U/L (39-308); Glucose Level 88 mg/dL (74-106); Magnesium 1.9 mg/dL (1.8-2.4); Protein, Total 5.8 g/dL (6.4-8.2); Sodium Level 140 mmol/L (136-145)
[2021-11-03 05:47] VITALS: BMI 30.7
[2021-11-03] MEDS: INSULIN -REGULAR HUMAN 50 UNIT/0.5 ML ML SQ SCH ×4 (06:00→16:25)
--- NOTE | 2021-11-03 06:57 | PN ---
Date of Progress Note: 11/02/2021 Subjective: The patient was seen this morning. He was in ICU. For this admission when the patient came into emergency room, he was admitted under hospitalist service and Dr. Garcia notified me that t his is probably my patient, who was by mistake admitted to hospitalist service and he discussed all t he details with me regarding the patient's care and management provided during this hospitalization a nd I saw the patient this morning. He was in ICU, lying in bed, not in any distress. He has some di fficulty with his speech, but he is able to follow commands, answer questions appropriately. Objective: Vital Signs: Reviewed. HEENT: Unremarkable. Lungs: Clear to auscultation. Heart: Sounds normal. Abdomen: Soft. Bowel sounds normal. No guarding, rigidity, tenderness, distention. Extremity: No leg edema. Neuro: The patient has some slurred speech and has left-sided hemiplegia. Sensation also is impaire d to left upper and left lower extremity. Laboratory Data: White count today 8.6, hemoglobin 13, platelets 202. Sodium 144, potassium 2.9, ch loride 112, bicarb 25, BUN 11, creatinine 0.69, glucose 92. Liver function tests unremarkable, excep t AST 115. CPK 1221. His highest CPK during this admission was yesterday 4961. Hemoglobin A1c 5.2 and his TSH was 0.698 done yesterday. His lipid profile from yesterday; LDL 13, HDL 52, total choles terol 95, triglycerides 150. CAT scan of the head and carotid artery Doppler findings reviewed. Blo od culture was reported today as gram-positive cocci. Impression: 1.Sepsis. 2.Rhabdomyolysis, improving. 3.Hyperlipidemia. 4.Stroke with left-sided hemiplegia. 5.Peripheral vascular disease. 6.Carotid artery stenosis. Plan: Arterial Doppler of lower extremity was done today, results reviewed. The patient had a strok e night of his admission to the hospital and Neurology consultation from Dr. Quinn was obtained, I have reviewed that, and we will continue to follow up with Dr. Quinn. We will also continue to f marianne with cdl instructor. The patient will have MRI done today. Speech Therapy recommendation was re viewed and we will start him on diet as per Speech therapist. We will have Physical Therapy continue to work with the patient and inpatient rehab will be consulted. We will start statin therapy at [facility], continue current empiric antibiotic for sepsis. Continue aspirin, Plavix, and Lovenox . I will see him tomorrow for followup. VISHNU/MODL Voice ID: [id number] Report ID: [id number]
[2021-11-03] MEDS: ASPIRIN EC 81 MG TAB PO SCH (07:40)
[2021-11-03] MEDS: PANTOPRAZOLE 40 MG INJ IVP SCH (07:41)
[2021-11-03] MEDS: CLOPIDOGREL 75 MG TABLET PO SCH (07:41)
[2021-11-03] MEDS: CEFTRIAXONE 1,000 MG in NA CHLORIDE 0.9% 50 ML IVPB SCH (07:41)
[2021-11-03] MEDS: MIDODRINE HCL 5 MG TABLET PO SCH ×3 (07:41→19:53)
[2021-11-03] MEDS: JUVEN PACKET PO SCH (07:42)
[2021-11-03] MEDS: THIAMINE 200 MG/2 ML INJ IVP SCH (07:42)
--- NOTE | 2021-11-03 08:34 | RAD REPORT ---
EXAM DESCRIPTION: [facility]io11/03/2021 8:15 am CLINICAL HISTORY: Acute CVA COMPARISON: MRA November 02, 2021 TECHNIQUE: 50 cc Isovue 370 was administered intravenously. 3D MIP reconstruction performed All CT scans are performed using dose optimization technique as appropriate and may include automated exposure control or mA/KV adjustment according to patient size. FINDINGS: Calcified plaque occludes the lumen of the proximal brachiocephalic artery. Moderate calcified plaque right carotid bulb. Mild to moderate calcified plaque distal right internal carotid artery. Severe calcified plaque distal left common carotid artery/left carotid bulb. Mild calcified plaque di stal left internal carotid artery Moderate calcified plaque origin left vertebral artery. Right vertebral artery contains areas of diminished and no opacification. 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 Mild 0-49% stenosis Moderate 50-69% stenosis Severe 70-99% stenosis
[2021-11-03] MEDS: FOLIC ACID 1 MG in NA CHLORIDE 0.9% 50 ML IV SCH (10:29)
[2021-11-03] MEDS: D5 0.45 NS 1,000 ML IV SCH (10:30)
[2021-11-03 14:08] VITALS: TEMP 97.6
[2021-11-03 15:53] VITALS: BP 106/79
[2021-11-03] MEDS: ENOXAPARIN 40 MG/0.4 ML SQ SCH (16:46)
--- NOTE | 2021-11-05 15:51 | PN ---
Date of Progress Note: 11/02/2021 The patient was admitted with rhabdomyolysis and while he is in the hospital, he had a CVA. His trop onin was elevated secondary to rhabdomyolysis and demand ischemia. He had elevated white count, elev ated troponin, altered mental status. His echocardiogram basically was unremarkable with an ejection fraction of 56%. On 11/02/2021, his blood pressure was 99/68. He was in sinus rhythm. He was afeb rile. O2 saturation was 98% on room air. His last creatinine was 0.6. Hemoglobin of 12. His last potassium was 4.0. His CPK had come down from 1221 to 387. He remains with slurred speech, lethargy and that may be a plan for him to go to rehab from a cardiac standpoint. I will sign off his case. EDNA/ANITHA Voice ID: [id number] Report ID: [id number]
[2021-11-08 12:59] LABS: Urine Blood 2+ (Negative); Urine Glucose Negative (Negative); Urine Protein 3+ (Negative); Urine Specific Gravity >=1.030 (1.005-1.030); Urine pH 5.5 (5.0-7.0)
--- NOTE | 2021-11-20 21:15 | DS ---
Date of Discharge: 11/03/2021 Disposition: The patient was transferred via ground ambulance to [place] for higher level of care at a tertiary hospital. Physical Examination: HEENT: Unremarkable. Lungs: Clear to auscultation. Heart: Sounds normal. Abdomen: Soft. Bowel sounds normal. No guarding, rigidity, tenderness, or distention. Extremities: No leg edema. 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 Laboratory Data: Upon admission on 10/31/2021, sodium 141, potassium 3.8, chloride 104, bicarb 22, B UN 30, creatinine 1.05, glucose 109, AST 135, CPK 3946. Rapid troponin 1.03. Day after admission, t roponin 1.02, and CPK level was 4961 and that was the highest CPKs. Last CPK on day of discharge was 387. Last chemistry on day of discharge, sodium 140, potassium 4, chloride 108, bicarb 26, BUN 8, creatini ne 0.60, glucose 88. Potassium was low at 3.4 on 11/02/2021, and also 1 prior to that was 2.9 on 02/2022. Urine toxicology screen is negative. Influenza A/B and COVID-19 test negative. Chest x-ra y upon admission showed mild CHF pattern. CAT scan of the head and cervical spine upon admission cyndee wed no acute intracranial or cervical spine finding. Moderate multilevel cervical degenerative tabor es present. Repeat CAT scan of the brain on 11/01/2021 showed subtle hypodensity in the right fronta l operculum, right parietal lobe and right posterior insula suspicious for acute right middle cerebra l artery territory infarct. Carotid Doppler from 11/01/2021 showed moderate plaque within the left i nternal carotid artery resulting in approximately 65% stenosis. MRI of the brain from 11/02/2021 [facility] wed acute right cerebral infarction. MRA showed bilateral monophasic arterial waveform and this is a rterial Doppler of lower extremity indicating aortoiliac disease. MRA of the brain showed a little s ignal within 1.2 cm segment of distal right internal carotid artery may represent thrombus, and other possibility it could be artifact diminished signal within branches of right middle cerebral artery, and CT angiogram of the neck showed calcified plaque occluding proximal brachiocephalic artery, moder ate calcified plaque, right carotid bulb, severe calcified plaque distal left common carotid artery, left carotid bulb resulting in high-grade stenosis, chronic dissection of right vertebral artery is s uspected. Blood culture was coagulase negative staph and this was a skin contamination. Hospital Course: Mr. Holder is a 76-year-old pleasant male patient who saw me only once recently f or a new patient office visit, came into the hospital emergency room, and after he was evaluated he w as admitted to the hospital under hospitalist service. The patient actually had a stroke. Initial C AT scan was negative, but subsequent CAT scan the night of admission had shown acute right-sided stro ke causing left-sided hemiplegia. He was in ICU and I saw him for the first time on 11/02/2021. The patient has a Neurology consultation from Dr. Quinn in place and all the imaging studies results reviewed. Blood culture was positive and empiric antibiotics were given, but the final report is ubaldo t it was a skin contamination. The patient also had significant rhabdomyolysis which actually has im proved. His significant dense left-sided hemiplegia has not improved and he has significant vascular problem as noted on CT angiogram and MRA. With all this acute problem, it was recommended for ashia nt to be transferred to a tertiary care center in [place] for higher level of care, and once patient was accepted, we were able to transfer him via ground ambulance. Final Diagnoses: 1.Stroke, acute, causing left-sided hemiplegia. 2.Rhabdomyolysis, improved. 3.Hyperlipidemia. 4.Peripheral vascular disease. 5.Carotid artery stenosis, bilateral. 6.Type 2 diabetes mellitus. 7.Hypertension. 8.Hyperlipidemia. 9.Atherosclerotic cardiovascular disease. VISHNU/MODL Voice ID: [id number] Report ID: [id number]
== END 2021-11-03 20:10 | disposition short-term general hospital (02) | DRG 871 ==
LOC: ER 12:28 → ERHOLD 15:42 → 2ND 20:03 → 3RD-ICU 11-01 04:50
PROVIDERS: ADMIT Internal Medicine; ATTEND Internal Medicine
DX: A41.9 Sepsis, unspecified organism (principal); I63.9 Cerebral infarction, unspecified; G81.94 Hemiplegia, unspecified affecting left nondominant side; I24.8 Other forms of acute ischemic heart disease; T79.6XXA Traumatic ischemia of muscle, initial encounter; I10 Essential (primary) hypertension; I25.10 Atherosclerotic heart disease of native coronary artery without angina pectoris; E11.51 Type 2 diabetes mellitus with diabetic peripheral angiopathy without gangrene; D72.829 Elevated white blood cell count, unspecified; E78.5 Hyperlipidemia, unspecified; L89.150 Pressure ulcer of sacral region, unstageable; N28.9 Disorder of kidney and ureter, unspecified; F10.10 Alcohol abuse, uncomplicated; L89.312 Pressure ulcer of right buttock, stage 2; L89.322 Pressure ulcer of left buttock, stage 2; L89.626 Pressure-induced deep tissue damage of left heel; I65.29 Occlusion and stenosis of unspecified carotid artery; E86.0 Dehydration; R47.81 Slurred speech; R77.8 Other specified abnormalities of plasma proteins; W01.0XXA Fall on same level from slipping, tripping and stumbling without subsequent striking against object, initial encounter; Z79.84 Long term (current) use of oral hypoglycemic drugs; Z79.899 Other long term (current) drug therapy; Z95.1 Presence of aortocoronary bypass graft; Z95.5 Presence of coronary angioplasty implant and graft; Z79.82 Long term (current) use of aspirin; Z20.822 Contact with and (suspected) exposure to COVID-19
CPT/HCPCS: 0240U; 36415; 70450; 70498; 70544; 70549; 70553; 71045; 72125; 80048; 80053; 80061; 80076; 80202; 80307; 80320; 81003; 81015; 82550; 82553; 82947; 83036; 83605; 83735; 83880; 84132; 84145; 84439; 84443; 84484; 85025; 85610; 85730; 87040; 87205; 92526; 92610; 93005; 93306; 93880; 93925; 96360; 96361; 96372; 97110; 97112; 97161; 97165; 97530; 99285; A9577; C9113; J1644; J1650; J3370; J3411; J3480; J7030; J7040; J7050; J7799; Q9967